=== PATIENT | male | born 1940 | race Caucasian/White ===

== ENCOUNTER → 2017-01-22 | Outpatient (CLI) | payer MEDICARE ==
[~2017-01-22] MED LIST: ACET65TA OR; CAPT12.5 OR; COLA100C2 PO; NEOSSOL TOP; OXYC10TA97 OR; PERC7.5T8 OR; ZETI10TA OR; metformin PO
[2017-01-22 09:12] LABS: MEAN CORPUSCULAR HEMOGLOBIN 30.2 pg (27.0-33.0); MEAN CORPUSCULAR HGB CONC 31.8 g/dl (32.0-36.5); MEAN CORPUSCULAR VOLUME 95.1 fl (80.0-96.0); RED CELL DISTRIBUTION WIDTH 13.5 % (11.5-14.5); WHITE BLOOD COUNT 6.4 K/mm3 (4.0-10.0)
--- NOTE | 2017-01-22 09:29 | REP ---
CHEST, PA AND LATERAL: 01/22/2017. Comparison: 06/04/2016, 06/05/2013. Clinical history: Hypertension. Findings: Lungs are hyperinflated. There is underlying fibrosis and COPD. Scarring slightly heavier in the right than left base. Some minor lateral pleural thickening and post-traumatic changes right lateral ribs. No dense consolidation, parenchymal mass or acute infiltrate. Heart not enlarged. Epicardial fat pad adjacent left heart border. There is some pulmonary artery hypertension, likely on the basis of COPD. Bullous emphysematous changes in the upper lung zones. Calcified aorta without aneurysm. Airway intact. Bony thorax shows no acute compression deformity. Impression: 1. Hyperinflation with COPD, pulmonary artery hypertension, emphysematous change and fibrosis. Stable chest with no acute finding. Signed by Samuel Rodríguez MD 01/22/2017 08:19 P
[2017-01-22 09:53] LABS: ALBUMIN 3.7 GM/DL (3.2-5.2); ALBUMIN/GLOBULIN RATIO 1.32 (1.00-1.93); ALKALINE PHOSPHATASE 78 U/L (45-117); ALT/SGPT 22 U/L (12-78); ANION GAP 6 MEQ/L (8-16); AST/SGOT 13 U/L (15-37); BILIRUBIN,TOTAL 0.4 MG/DL (0.2-1.0); BLOOD UREA NITROGEN 15 MG/DL (7-18); CALCIUM LEVEL 9.3 MG/DL (8.8-10.2); CARBON DIOXIDE LEVEL 29 MEQ/L (21-32); CHLORIDE LEVEL 106 MEQ/L (98-107); CHOLESTEROL LEVEL 213 MG/DL (<200); CREATININE FOR GFR 0.95 MG/DL (0.70-1.30); GLOMERULAR FILTRATION RATE > 60.0 (>42); GLUCOSE, FASTING 116 MG/DL (83-110); POTASSIUM SERUM 4.6 MEQ/L (3.5-5.1); SODIUM LEVEL 141 MEQ/L (136-145); TOTAL PROTEIN 6.5 GM/DL (6.4-8.2); TRIGLYCERIDES LEVEL 80 MG/DL (<150)
--- NOTE | 2017-01-23 20:22 | ECGEPIP ---
Stationary ECG Study [facility] Test Date: 2017-01-22 Pat Name: GELA TORRES Department: Room: - Gender: M Director Imaging: GUEVARA : 1940 Requested By: Venessa Villatoro Order Number: [id number] Reading MD: Michael Banerjee Measurements Intervals [place] Rate: 78 P: 71 TN: 153 QRS: 75 QRSD: 109 T: 71 QT: 350 QTc: 400 Interpretive Statements SINUS RHYTHM DELAYED R WAVE PROGRESSION SIMILAR 06/04/16 Electronically Signed On 01-23-2017 20:21:52 EDT by Michael Banerjee
== END ==
LOC: M LAB 08:26
PROVIDERS: ATTEND Family Medicine
DX: J44.9 Chronic obstructive pulmonary disease, unspecified (principal); I27.0 Primary pulmonary hypertension; N40.0 Benign prostatic hyperplasia without lower urinary tract symptoms

== ENCOUNTER → 2017-02-02 | Day surgery (SDC) | payer MEDICARE ==
[~2017-02-02] VITALS: Ht 177.8 cm; Wt 83.9 kg
[~2017-02-02] MED LIST changes: +ACETAMINOPHEN 325 MG TAB PO PRN; +ACETYLCHOLINE OPHTH SOLN 1% 2ML As Ordered ONE; +AcetaZOLAMIDE 500 MG ER CAP PO ONE; +BALANCED SALT IRRIGATION SOLUTION 500ML BAG (FOR OR EYE MACHINE) As Ordered ONE; +CAPT62TA PO; +CEFUROXIME 1MG/0.1ML INTRACAMERAL INJ As Ordered ONE; +CYCLOPENTOLATE 2% OPHTH SOLN OS ONE; +D5W/0.2% SODIUM CHLORIDE 250 ML IV SCH; +HEALON DUET (HEALON 10MG/ML 0.55ML & HEALON ENDOCOAT 30MG/ML 0.85ML) As Ordered ONE; +KETOROLAC 0.5% OPHTH SOLN OS ONE; +LIDOCAINE 1% SDV 5 ML VIAL As Ordered ONE; +LIDOCAINE 4% INJ 5 ML AMP OU ONE; +MIDAZOLAM INJ 2 MG/2 ML VIAL (J2250) As Ordered ONE; +OFLOXACIN 0.3 % (OCUFLOX) OPTH SOL 5ML OS ONE; +PHENYLEPHRINE 2.5% OPHTH SOL 2ML OS ONE; +POVIDONE-IODINE 5% OPHTH PREP SOL 30ML As Ordered ONE; +PROPARACAINE 0.5% OPHTH SOL 15ML OS PRN; +TRIMETHOBENZAMIDE 300 MG CAP PO PRN; +TROPICAMIDE 1% OPHTH SOLN 2 ML OS ONE; +TYLE325T5 PO; +ZETI10TA2 PO; +fentaNYL 100 MCG/2 ML INJECTION (J3010) As Ordered ONE
[2017-02-02 14:00] VITALS: BP 175/79
--- NOTE | 2017-02-02 14:08 | RO ---
DATE OF PROCEDURE: 02/02/2017 PREPROCEDURE DIAGNOSIS: Age related nuclear cataract left eye. POSTPROCEDURE DIAGNOSIS: Age related nuclear cataract left eye. PROCEDURE: Femtosecond cataract extraction with posterior chamber intraocular lens. The lens used was an AU00T0, 18.0 diopter. SURGEON: Kristina Shen MD NIGHT WORKER: ANESTHESIA: Topical sedation. DESCRIPTION OF PROCEDURE: The patient was brought to the operating room and put under the femtosecond laser. A lid speculum was placed between the lids, and the laser was lowered on. Docking was achieved with good suction. The laser procedure was performed with no difficulty. The laser was then removed from the eye, and the lid speculum was removed. The laser was moved over to the operating microscope and prepped and draped in the usual fashion. A lid speculum was placed between the lids. The eye was fixated. The side port incision was opened up with a spatula. 1% non-preservative lidocaine was instilled; then, viscoelastic was instilled. The main incision was then opened with the spatula. The capsulorrhexis was removed from the eye with the Utrata forceps. The lens was then hydrodissected, and a phacoemulsification unit was used to make a groove in the nucleus and one meridian. The nucleus was cracked into four quadrants, and then each quadrant was removed with the phacoemulsification unit. Any remaining cortex was removed with the irrigation and aspiration (I and A) unit. The capsular bag was refilled with viscoelastic. A posterior chamber intraocular lens was placed in the capsular bag. The remaining viscoelastic was removed. The wound was hydrated. Miochol and cefuroxime were instilled. The wound was watertight. The patient tolerated the procedure well and went to the recovery room in stable condition.
== END | disposition home or self-care (01) ==
LOC: M SDC 11:24
PROVIDERS: ATTEND Ophthalmology
DX: H25.12 Age-related nuclear cataract, left eye (principal); I10 Essential (primary) hypertension; E78.00 Pure hypercholesterolemia, unspecified; E11.9 Type 2 diabetes mellitus without complications; K21.9 Gastro-esophageal reflux disease without esophagitis; F17.210 Nicotine dependence, cigarettes, uncomplicated; Z79.899 Other long term (current) drug therapy; Z79.84 Long term (current) use of oral hypoglycemic drugs
CPT/HCPCS: 66984; J2250; J3010; V2632

== ENCOUNTER → 2018-11-04 | Outpatient (CLI) | payer MEDICARE ==
[~2018-11-04] MED LIST changes: -ACETAMINOPHEN 325 MG TAB PO PRN; -ACETYLCHOLINE OPHTH SOLN 1% 2ML As Ordered ONE; -AcetaZOLAMIDE 500 MG ER CAP PO ONE; -BALANCED SALT IRRIGATION SOLUTION 500ML BAG (FOR OR EYE MACHINE) As Ordered ONE; -CEFUROXIME 1MG/0.1ML INTRACAMERAL INJ As Ordered ONE; -CYCLOPENTOLATE 2% OPHTH SOLN OS ONE; -D5W/0.2% SODIUM CHLORIDE 250 ML IV SCH; -HEALON DUET (HEALON 10MG/ML 0.55ML & HEALON ENDOCOAT 30MG/ML 0.85ML) As Ordered ONE; -KETOROLAC 0.5% OPHTH SOLN OS ONE; -LIDOCAINE 1% SDV 5 ML VIAL As Ordered ONE; -LIDOCAINE 4% INJ 5 ML AMP OU ONE; -MIDAZOLAM INJ 2 MG/2 ML VIAL (J2250) As Ordered ONE; -OFLOXACIN 0.3 % (OCUFLOX) OPTH SOL 5ML OS ONE; -PHENYLEPHRINE 2.5% OPHTH SOL 2ML OS ONE; -POVIDONE-IODINE 5% OPHTH PREP SOL 30ML As Ordered ONE; -PROPARACAINE 0.5% OPHTH SOL 15ML OS PRN; -TRIMETHOBENZAMIDE 300 MG CAP PO PRN; -TROPICAMIDE 1% OPHTH SOLN 2 ML OS ONE; -ZETI10TA2 PO; +ZETI10TA30 PO; -fentaNYL 100 MCG/2 ML INJECTION (J3010) As Ordered ONE
--- NOTE | 2018-11-04 13:54 | REP ---
LEFT SHOULDER, COMPLETE: 11/04/2018. Comparison: PA chest 01/22/2017. Clinical history: Left shoulder pain. Findings: AC joint shows some degenerative changes and larger spurs superiorly than inferiorly. No widening of the joint space or elevation of the clavicle. Minimal glenohumeral joint degenerative changes are noted with range of motion with internal external rotation views. Peripheral acromial spur noted. I see no subluxation or dislocation of the humeral head from the glenoid. No abnormal soft-tissue calcification. Visualized ribs intact. Impression: 1. AC and glenohumeral joint arthritic change without fracture, avulsion, subluxation, abnormal soft-tissue calcification or other acute finding. No destructive bone lesion. Electronically Signed by Samuel Rodríguez MD 11/04/2018 02:08 P
== END ==
LOC: M WUC 11:53
PROVIDERS: ATTEND Physician Assistant
DX: M79.622 Pain in left upper arm (principal)

== ENCOUNTER → 2019-07-28 | Outpatient (CLI) | payer MEDICARE ==
[~2019-07-28] MED LIST changes: +ZETI10TA16 PO; -ZETI10TA30 PO
--- NOTE | 2019-07-29 10:47 | REP ---
REASON FOR EXAM: History of COPD. COMPARISON: Multiple, the latest 01/22/2017. The cardiomediastinal silhouette and lung justice are unchanged. There is scattered parenchymal fibrosis status quo. There is chronic CP angle blunting status quo. The heart is not enlarged. There are no acute abnormal parenchymal opacities. There are chronic changes seen involving the imaged osseous structures status quo. IMPRESSION: Stable appearing chronic changes without plain radiographic evidence of acute cardiopulmonary disease. Electronically Signed by Jose Stanton DO 07/29/2019 10:57 A
== END ==
LOC: M WUC 12:07
PROVIDERS: ATTEND Family Medicine
DX: J44.9 Chronic obstructive pulmonary disease, unspecified (principal)

== ENCOUNTER → 2021-04-14 | Outpatient (CLI) | payer MEDICARE ==
[2021-04-14 07:30] LABS: HEMATOCRIT 46.5 % (42.0-52.0); HEMOGLOBIN 15.3 g/dl (13.5-17.5); MEAN CORPUSCULAR HEMOGLOBIN 30.9 pg (27.0-33.0); MEAN CORPUSCULAR HGB CONC 32.9 g/dl (32.0-36.5); MEAN CORPUSCULAR VOLUME 93.9 fl (80.0-96.0); PLATELET COUNT, AUTOMATED 256 10^3/uL (150-450); RED BLOOD COUNT 4.95 10^6/uL (4.30-6.10)
[2021-04-14 08:11] LABS: ALT/SGPT 19 U/L (12-78); BILIRUBIN,TOTAL 0.8 MG/DL (0.2-1.0); BLOOD UREA NITROGEN 16 MG/DL (7-18); CALCIUM LEVEL 8.5 MG/DL (8.8-10.2); CARBON DIOXIDE LEVEL 30 MEQ/L (21-32); CHLORIDE LEVEL 105 MEQ/L (98-107); CREATININE FOR GFR 0.86 MG/DL (0.70-1.30); GLOMERULAR FILTRATION RATE > 60.0 (>42); GLUCOSE, FASTING 102 MG/DL (70-100); POTASSIUM SERUM 3.6 MEQ/L (3.5-5.1); SODIUM LEVEL 141 MEQ/L (136-145)
[2021-04-14 08:12] LABS: ALBUMIN 3.4 GM/DL (3.2-5.2); CHOLESTEROL LEVEL 192 MG/DL (<200); CHOLESTEROL RISK RATIO 3.764 (<5); HDL CHOLESTEROL 51 MG/DL (>40); LDL CHOLESTEROL 124 MG/DL (<100); NON-HDL-C 141 MG/DL; PROSTATIC SPECIFIC AG MONITOR 0.99 NG/ML (< 4.00); TOTAL PROTEIN 6.3 GM/DL (6.4-8.2); TRIGLYCERIDES LEVEL 84 MG/DL (<150)
--- NOTE | 2021-04-14 08:30 | REP ---
INDICATION: COPD,ANEMIA COMPARISON: 07/28/2019 TECHNIQUE: PA and lateral. FINDINGS: The mediastinum and cardiac silhouette are normal. The lung justice demonstrate stable chronic changes consistent with COPD. No acute consolidation, effusion, or pneumothorax. The skeletal structures are intact and normal. IMPRESSION: No acute cardiopulmonary process. <Electronically signed by Bernard Wallace > 04/14/21 0894
[2021-04-14 09:32] LABS: HEMOGLOBIN A1c 5.2 %
--- NOTE | 2021-04-14 17:37 | ECGEPIP ---
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 Could not rule out prior septal infarction No significant change from 01/22/17 Electronically Signed on 04-14-2021 17:37:35 EDT by Donald Walsh
== END ==
LOC: M LAB 06:45
PROVIDERS: ATTEND Family Medicine
DX: J44.9 Chronic obstructive pulmonary disease, unspecified (principal); D64.9 Anemia, unspecified; E78.00 Pure hypercholesterolemia, unspecified; R97.20 Elevated prostate specific antigen [PSA]

== ENCOUNTER → 2021-04-29 | Outpatient (CLI) | payer MEDICARE ==
[~2021-04-29] MED LIST changes: +E-Z-GAS II EFFERVESCENT PACKET (SODIUM BICARB./CITRIC ACID/SIMETHICONE) As Ordered ONE; +E-Z-HD 98% w/w 340GM SUSP BTL As Ordered ONE; +E-Z-PAQUE 96% w/w SUSP 176GM BTL As Ordered ONE
--- NOTE | 2021-04-29 15:16 | REP ---
INDICATION: EPIGASTRIC PAIN, WT LOSS. COMPARISON: Upper GI dated 12/17/2008, CT abdomen and pelvis with contrast dated 09/16/2011 TECHNIQUE: This procedure was performed by Miranda Carrillo [facility], under the direct supervision of Dr. Frye. Images were reviewed with Dr. Frye prior to dictation. Liquid barium and gas producing crystals were given in the erect position, as well as liquid barium in the prone oblique position in order to perform a double contrast upper GI examination. FINDINGS: The university administrative assistant film shows no organomegaly or pathological masses. The intestinal gas pattern is unremarkable. The oral and pharyngeal stages of deglutition were unremarkable. Esophageal transport is prompt and efficient and there is no evidence of esophagitis, stricture, or mucosal ring. There is no evidence of a hiatal hernia. Gastroesophageal reflux was noted into the distal esophagus. The stomach agosto are normally outlined. There are numerous thickened gastric folds. This is a similar appearance to the previous study in [address] in 2010. An upper endoscopy may be considered for better visualization and correlation given the patient's symptoms. Due to this appearance and the patient's symptoms gastritis cannot be ruled out. The duodenal agosto are normally outlined. The mucosal folds are smooth and regular. There is no duodenitis, peptic ulcer disease or neoplasm. The visualized portion of the proximal small bowel appears normal in course and caliber. IMPRESSION: Numerous thickened gastric folds as described above, upper endoscopy may be considered for further evaluation. 0.3 minutes of fluoroscopy time was utilized for this procedure. Some fluoroscopic images are performed with last image hold technology. These images require no additional radiation. <Electronically signed by Miranda Carrillo > 04/29/21 144 <Electronically signed by Mendez Frye > 04/29/21 1514
== END ==
LOC: M RAD 08:28
PROVIDERS: ATTEND Family Medicine
DX: R63.4 Abnormal weight loss (principal); R10.13 Epigastric pain

== ENCOUNTER 2021-06-15 11:26 | Emergency (ER) | payer MEDICARE ==
[~2021-06-15] VITALS: Ht 177.8 cm; Wt 63.0 kg
[~2021-06-15 11:26] MED LIST changes: -E-Z-GAS II EFFERVESCENT PACKET (SODIUM BICARB./CITRIC ACID/SIMETHICONE) As Ordered ONE; -E-Z-HD 98% w/w 340GM SUSP BTL As Ordered ONE; -E-Z-PAQUE 96% w/w SUSP 176GM BTL As Ordered ONE
[2021-06-15] MEDS ORDERED: HYDR-4571 PO (11:45)
[2021-06-15] MEDS ORDERED: ONDANSETRON 4MG/2ML VIAL IV ONE (14:20)
[2021-06-15] MEDS ORDERED: MORPHINE 4 MG/ML 1ML VIAL/SYRINGE (J2270) IV ONE (14:20)
[2021-06-15 15:08] LABS: BASO % 0.1 % (0.0-1.0); HEMATOCRIT 46.6 % (42.0-52.0); HEMOGLOBIN 15.9 g/dl (13.5-17.5); LYMPH # 1.2 10^3/uL (1.5-5.0); LYMPH % 5.6 % (24.0-44.0); MEAN CORPUSCULAR HEMOGLOBIN 31.1 pg (27.0-33.0); MEAN CORPUSCULAR HGB CONC 34.1 g/dl (32.0-36.5); MONO # 1.2 10^3/uL (0.0-0.8); MONO % 5.7 % (2.0-8.0); NEUTROPHILS # 18.3 10^3/uL (1.5-8.5); NEUTROPHILS % 87.6 % (36.0-66.0); PLATELET COUNT, AUTOMATED 255 10^3/uL (150-450); RED BLOOD COUNT 5.12 10^6/uL (4.30-6.10); WHITE BLOOD COUNT 20.9 10^3/uL (4.0-10.0)
[2021-06-15 16:23] VITALS: BP 173/85
[2021-07-29] MEDS ORDERED: MAGN200T PO (15:03)
[2021-07-29] MEDS ORDERED: DEXI30CA2 PO (15:03)
[2021-07-29] MEDS ORDERED: SUCR1TA PO (15:03)
[2021-07-29] MEDS ORDERED: VITMTA PO (15:03)
== END 2021-06-15 16:26 | disposition home or self-care (01) ==
LOC: M ED 11:26
DX: K40.90 Unilateral inguinal hernia, without obstruction or gangrene, not specified as recurrent (principal); I10 Essential (primary) hypertension; E78.5 Hyperlipidemia, unspecified; J44.9 Chronic obstructive pulmonary disease, unspecified; F17.200 Nicotine dependence, unspecified, uncomplicated
CPT/HCPCS: 76857; 80047; 85025; 96374; 96375; 99284; J2270; J2405

== ENCOUNTER → 2021-06-20 | Outpatient (CLI) | payer MEDICARE ==
[~2021-06-20] MED LIST changes: +ERGO500029 PO; +FLUTISP NARES; +HYDR-4571 PO; +PANT40TA29 PO; +PRED10TA2 PO; +SYMB16INH INH
[2021-06-20 09:39] LABS: ALT/SGPT 165 U/L (12-78); BLOOD UREA NITROGEN 14 MG/DL (7-18); CALCIUM LEVEL 7.3 MG/DL (8.8-10.2); CARBON DIOXIDE LEVEL 30 MEQ/L (21-32); CHLORIDE LEVEL 104 MEQ/L (98-107); CREATININE FOR GFR 0.81 MG/DL (0.70-1.30); GLOMERULAR FILTRATION RATE > 60.0 (>42); GLUCOSE, FASTING 102 MG/DL (70-100); POTASSIUM SERUM 3.3 MEQ/L (3.5-5.1); SODIUM LEVEL 140 MEQ/L (136-145)
== END ==
LOC: M LAB 08:52
PROVIDERS: ATTEND Internal Medicine Gastroenterology
DX: R10.9 Unspecified abdominal pain (principal); R63.4 Abnormal weight loss

== ENCOUNTER 2021-06-24 14:11 | Inpatient (IN) | payer MEDICARE ==
[~2021-06-24] VITALS: Ht 177.8 cm; Wt 60.5 kg
[~2021-06-24 14:11] MED LIST changes: -ERGO500029 PO; -FLUTISP NARES; -PANT40TA29 PO; -PRED10TA2 PO; -SYMB16INH INH
[2021-06-24] MEDS ORDERED: PRED10TA2 PO (14:29)
[2021-06-24] MEDS ORDERED: PANT40TA29 PO (14:29)
[2021-06-24] MEDS ORDERED: methylPREDNISolone 125MG 2ML VIAL IV ONE (15:25)
[2021-06-24 15:51] LABS: BASO % 0.1 % (0.0-1.0); EOS % 0.1 % (0.0-3.0); HEMATOCRIT 43.2 % (42.0-52.0); HEMOGLOBIN 15.1 g/dl (13.5-17.5); LYMPH # 0.9 10^3/uL (1.5-5.0); LYMPH % 5.6 % (24.0-44.0); MEAN CORPUSCULAR VOLUME 88.7 fl (80.0-96.0); MONO # 0.6 10^3/uL (0.0-0.8); MONO % 3.9 % (2.0-8.0); NEUTROPHILS # 13.8 10^3/uL (1.5-8.5); NEUTROPHILS % 89.1 % (36.0-66.0); PLATELET COUNT, AUTOMATED 212 10^3/uL (150-450); RED BLOOD COUNT 4.87 10^6/uL (4.30-6.10); WHITE BLOOD COUNT 15.5 10^3/uL (4.0-10.0)
[2021-06-24 16:24] LABS: ALBUMIN 2.7 GM/DL (3.2-5.2); ALT/SGPT 85 U/L (12-78); BILIRUBIN,DIRECT 0.6 MG/DL (0.0-0.2); BILIRUBIN,TOTAL 1.4 MG/DL (0.2-1.0); BLOOD UREA NITROGEN 14 MG/DL (7-18); CALCIUM LEVEL 6.9 MG/DL (8.8-10.2); CARBON DIOXIDE LEVEL 30 MEQ/L (21-32); CHLORIDE LEVEL 100 MEQ/L (98-107); CPK CREATINE PHOSPHOKINASE 76 U/L (39-308); CREATININE FOR GFR 0.73 MG/DL (0.70-1.30); GLOMERULAR FILTRATION RATE > 60.0 (>42); GLUCOSE, FASTING 120 MG/DL (70-100); MB/CK RELATIVE INDEX 3.95 (< OR =4); NT-PRO BNP 563 PG/ML (<450); POTASSIUM SERUM 3.1 MEQ/L (3.5-5.1); SODIUM LEVEL 138 MEQ/L (136-145); THYROID STIMULATING HORMONE 0.954 uIU/ML (0.358-3.740); THYROXINE (T4) 10.1 UG/DL (4.5-12.0); TOTAL PROTEIN 5.4 GM/DL (6.4-8.2); TROPONIN I 0.02 NG/ML (< 0.10)
[2021-06-24 16:31] LABS: RSV AMPLIFICATION NEGATIVE (NEGATIVE)
--- NOTE | 2021-06-24 17:00 | REP ---
INDICATION: DYSPNEA/COUGH. COMPARISON: Comparison chest x-ray April 14, 2021. TECHNIQUE: Portable upright AP chest radiograph. FINDINGS: The lungs are hyperinflated consistent with COPD. Mild bibasilar pleuroparenchymal fibrotic changes are seen. There are multiple old healed rib fractures bilaterally. The heart is not enlarged. EKG electrodes are seen. There is diffuse osteopenia. IMPRESSION: Hyperinflation. Bibasilar pleuroparenchymal fibrosis. Bilateral old healed rib fractures. <Electronically signed by Mendez Frye > 06/24/21 [id number]
[2021-06-24 17:10] LABS: PTH INTACT 75.8 PG/ML (18.5-88.0)
[2021-06-24] MEDS ORDERED: ISOVUE-370 76% 100ML VIAL As Ordered ONE (17:21)
--- NOTE | 2021-06-24 18:08 | REPVR ---
PROCEDURE INFORMATION: Exam: CTA Chest With Contrast Exam date and time: 06/24/2021 5:42 PM Age: 80 years old Clinical indication: Other: Abrupt onset of SOB; R/O pe TECHNIQUE: Imaging protocol: Computed tomographic angiography of the chest with contrast. 3D rendering (Not supervised by radiologist): MIP reconstructed images were created by the technologist. Radiation optimization: All CT scans at this facility use at least one of these dose optimization techniques: automated exposure control; mA and/or kV adjustment per patient size (includes targeted exams where dose is matched to clinical indication); or iterative reconstruction. Contrast material: ISOVUE 370; Contrast volume: 75 ml; Contrast route: INTRAVENOUS (IV); COMPARISON: CR PORTABLE CHEST X-RAY 06/24/2021 4:33 PM FINDINGS: Pulmonary arteries: No pulmonary artery embolism identified. Aorta: Moderate aortic arch, branch, and descending thoracic aortic atherosclerotic calcification without ectasia. Thyroid: The partially imaged bilateral thyroid lobes are unremarkable. Lungs: Right upper lobe pulmonary parenchymal scarring with dystrophic calcification, with focal somewhat triangular 2.9 cm cavity containing calcifications. Short segment right lower lobe posterior basilar segment mucous plugging. Left lower lobe endobronchial mucous plugging including 2.6 cm proximal left lower lobe bronchial in mucous plug and peripheral segmental and subsegmental occlusions. Mild bilateral lower lobe bronchial wall thickening. Pleural spaces: No pneumothorax. No pleural effusion. Heart: Normal. No pericardial effusion. Lymph nodes: No enlarged lymph nodes. Gallbladder and bile ducts: A few dependent tiny gallstones are noted posteriorly in the nondistended gallbladder. No gallbladder wall thickening or pericholecystic fluid identified. Pancreas: Moderate pancreatic atrophy. Adrenal glands: Left adrenal gland 16.6 mm low attenuation nodule (-6.3 Hounsfield units). 13.7 mm right adrenal nodule (16.2 Hounsfield units). Stomach and bowel: Right anterior subdiaphragmatic colonic and small bowel interposition is present, a normal variant. Bones/joints: Thoracic spine vertebral body marginal osteophytes are noted at multiple levels. Multiple healed right rib fractures. Healed posterolateral left 9th rib fracture. Soft tissues: Unremarkable. IMPRESSION: 1. No pulmonary artery embolism identified. 2. Right upper lobe thin walled cavity or bronchiectasis with broncholiths. 3. Left lower lobe extensive endobronchial mucous plugging. 4. Short segment right lower lobe posterior basilar segment mucous plugging. 5. Mild bilateral lower lobe bronchial wall thickening. 6. Left adrenal lipomatous adenoma. 7. Right adrenal nodule. Recommend further evaluation with CT washout or MRI. 8. Cholelithiasis. Electronically signed by: David Nguyen On 06/24/2021 18:08:17 PM
[2021-06-24] MEDS ORDERED: SYMB16INH INH (19:16)
[2021-06-24] MEDS ORDERED: FLUTISP NARES (19:16)
[2021-06-24] MEDS ORDERED: HOME MED LIST COMPLETE! XX SCH (19:20)
[2021-06-24] MEDS ORDERED: ACETAMINOPHEN TAB 650MG DOSE (2X325MG) PO PRN (19:30)
--- NOTE | 2021-06-24 19:53 | HPEPDOC ---
General Date of Admission 06/24/21 Date of Service: Jun 24, 2021 Chief Complaint Diff Breathing. Source: Patient History of Present Illness Alon Deleon is a 80-year-old male with significant history of hypertension, hyperlipidemia, GERD, COPD, and NIDDM who presents with dizziness. Patient reports that he has been at baseline until suddenly today he was sitting down and reported dizziness. He also reports a notable shortness of breath episode which prompted him to the ER. Patient endorses daily smoking and EtOH use. He reports compliance with his medications and describes chronic sinusitis. 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 Review of systems positive for loss of appetite in the past 2 months. Patient describes "no interest in eating". Patient reports that he went to his PCP regarding his appetite loss but did not endorse a set plan or any appetite stimulants. He also did report he was treated outpatient 2 to 3 weeks ago with steroids for bronchitis. Of note, patient chest x-ray showed hyperinflation. CT chest completed negative PE but did show several areas of mucous plugging as well as parenchymal thickening. Pt denies dunbar, sore throat, productive cough, palpitations, chest pain, n/v/d, abdominal pain, weakness, sensory changes or syncope. Patient does report some improvement after breathing treatment and steroids in ED. Home Medications Scheduled Budesonide/Formoterol (Symbicort 160-4.5 Mcg Inhaler) 6 Gm Hfa.aer.ad, 2 PUFFS INH BID, (Reported) Captopril (Captopril) 12.5 Mg Tab, 12.5 MG PO BID, (Reported) Ergocalciferol (Vitamin D2) (Vitamin D2) 50,000 Units Cap, 50,000 UNITS PO 1XWK for vitamin d deficiency Fluticasone Propionate (Fluticasone Propionate) 16 Gm [place].susp, 2 SPRAYS NARES DAILY, (Reported) Pantoprazole Sodium (Pantoprazole Sodium) 40 Mg Tablet.dr, 40 MG PO DAILY, (Reported) Prednisone (Prednisone) 10 Mg Tablet, 10 MG PO DAILY, (Reported) Scheduled PRN Hydrocodone/Acetaminophen (Hydrocodone-Acetamin 5-325 mg) 1 Each Tablet, 1 TAB PO BID PRN for PAIN LEVEL 1-6, (Reported) Allergies Coded Allergies: No Known Allergies (Verified , 02/02/17) Past Medical History Medical History Hypertension, hyperlipidemia, GERD, COPD, hernia and NIDDM Surgical History Denies Family History Significant Family History: No pertinent family hx Social History * Smoker: current smoker (1 to 2 packs weekly), cigarettes Alcohol: heavy (Daily 2-3 beers or vodka drinks) Drugs: denies Recent Travel/Sick Contacts: Denies: Recent travel, Recent sick contacts Psychosocial History: No pertinent psych hx A-FIB/CHADSVASC A-FIB History Current/History of A-Fib/PAF?: No Current PO Anticoag Therapy: No Review of Systems Constitutional: Denies: Chills, Fever, Night Sweats Eyes: Denies: Pain, Vision change ENT: Denies: Head Aches, Ear Pain, Dysphagia Skin: Denies: Rash, Lesions, Breakdown Pulmonary: Reports: Dyspnea; Denies: Cough Cardiovascular: Reports: Lt Headedness; Denies: Chest Pain, Palpitations, Orthopnea, Paroxysmal Noc. Dyspnea Gastrointestinal: Denies: Nausea, Vomiting, Abdominal Pain, Diarrhea Genitourinary: Denies: Dysuria, Frequency, Incontinence, Retention Hematologic: Denies: Bruising, Bleeding Excessively Musculoskeletal: Denies: Neck Pain, Back Pain, Joint Pain, Muscle Pain, Spasms Neurological: Denies: Weakness, Numbness, Change in speech, Confusion Psych: Reports: Mood Normal; Denies: Depression, Memory Issues Physical Examination General Exam: Positive: Alert, No Acute Distress Eye Exam: Positive: PERRLA, Conjunctiva & lids normal, EOMI; Negative: Sclera icteric ENT Exam: Positive: Atraumatic, Mucous membr. moist/pink, Pharynx Normal Neck Exam: Positive: Supple; Negative: JVD, thyromegaly Chest Exam: Positive: Rhonchi Heart Exam: Positive: Regular Rhythm, Normal S1, Normal S2, Other (Extrasystoles); Negative: Murmurs, Rubs Telemetry: Positive: No significant arrhythmia Abdomen Exam: Positive: Normal bowel sounds, Soft; Negative: Tenderness, Hepatospenomegaly Extremity Exam: Positive: Normal pulses; Negative: Clubbing, Cyanosis, Edema Skin Exam: Positive: Other skin issue (Skin tenting); Negative: Breakdown, Lesion Neuro Exam: Positive: Normal Gait, Normal Speech, Cranial Nerves 3-12 NL, Reflexes 2+ Psych Exam: Positive: Mental status NL, Mood NL, Oriented x 3 Vital Signs Vital Signs Date Time Temp Pulse Resp B/P (MAP) Pulse Ox O2 Delivery O2 Flow Rate FiO2 06/24/21 18:45 16 135/84 (101) 06/24/21 18:41 82 06/24/21 17:26 97 06/24/21 14:31 97.4 Room Air Laboratory Data Labs 24H Laboratory Tests 2 06/24/21 15:36: Immature Granulocyte % (Auto) 1.2, Neutrophils (%) (Auto) 89.1H, Lymphocytes (%) (Auto) 5.6L, Monocytes (%) (Auto) 3.9, Eosinophils (%) (Auto) 0.1, Basophils (%) (Auto) 0.1, Neutrophils # (Auto) 13.8H, Lymphocytes # (Auto) 0.9L, Monocytes # (Auto) 0.6, Eosinophils # (Auto) 0.0, Basophils # (Auto) 0.0, Nucleated Red Blood Cells % (auto) 0.0, Anion Gap 8, Glomerular Filtration Rate > 60.0, Calcium Level 6.9L, Total Bilirubin 1.4H, Direct Bilirubin 0.6H, Aspartate Amino Transf (AST/SGOT) 24, Alanine Aminotransferase (ALT/SGPT) 85H, Alkaline Phosphatase 65, Total Creatine Kinase 76, Creatine Kinase MB 3.0, Creatine Kinase MB Relative Index 3.95, Troponin I 0.02, JV-Mta-O-Type Natriuretic Peptide 563H, Total Protein 5.4L, Albumin 2.7L, Albumin/Globulin Ratio 1.0, Thyroid Stimulating Hormone (TSH) 0.954, Thyroxine (T4) 10.1, Parathyroid Hormone (Intact) 75.8, Coronavirus (COVID-19)(PCR) NEGATIVE, Influenza Type A (RT-PCR) NEGATIVE, Influenza Type B (RT-PCR) NEGATIVE, Respiratory Syncytial Virus (PCR) NEGATIVE 06/24/21 18:23: Whole Blood Ionized Calcium 3.4*L CBC/BMP Laboratory Tests 06/24/21 15:36 Assessment/Plan 1. COPD exacerbation: Monitor patient respiratory status-telemetry and continuous pulse ox Plan for scheduled and as needed breathing treatments Will begin empiric coverage with Levaquin A.m. lab 2. Dizziness: In setting of above, poor p.o. intake and electrolyte abnormalities. -Will place patient on telemetry for cardiac monitoring and continuous pulse ox. -Patient with notable extrasystoles. EKG pending -consider arrhythmia exacerbated by electrolyte issues. -Replete electrolytes as noted below. -Treat COPD exacerbation as noted above. -Consider differentials. -Will check orthostatics -We will hydrate patient gently. 3. Leukocytosis: In setting of prednisone use outpatient and COPD exacerbation. -Monitor for signs symptoms of infection -Will place patient on empiric coverage -Monitor patient response and consider de-escalation escalation accordingly. 4. Hypokalemia and hypocalcemia: -Replete per protocol and recheck labs. -Consider underlying causes-patient did endorse EtOH use daily. PTH within normal limits. Phosphorus, magnesium and vitamin D pending. 5. Hypertension: Monitor blood pressure and continue home medications. 6. Xvh-mwnuxfi-ahunvucgo diabetes: Patient denies history of diabetes. Given treatment above with steroids will opt for blood sugar monitoring and sliding scale insulin. Pending patient response for increase or de-escalation. Will check A1c. 7. EtOH/tobacco use: Encourage moderation and cessation. Likely EtOH consumption could be relative to patient electrolyte disturbances given his additional poor p.o. intake. Will place patient on multivitamins and withdrawal monitoring. Nicotine patch if needed. 8. GERD: Protonix DVT: Heparin, SCDs CODE STATUS: Full Dispo: Home once electrolytes improved and patient no longer dyspneic. Plan / VTE VTE Prophylaxis Ordered?: Yes Attending Note Attending Note Ms. Law is a 80 yr old F admitted for management of #acute COPD #hypokalemia # hypomagnesemia # hypocalcemia that is likely due to Vitamin D deficiency #she also has SIRS. plan: check lactic acid and blood cx, treat her acute COPD, replete K & Mag and start her on Ergocalciferol. FERNANDA LAW NP Jun 24, 2021 19:44 MYA AUGUSTINE MD Jun 24, 2021 23:22
[2021-06-24] MEDS ORDERED: GLUCOSE 4GM CHEW TABLET PO PRN (19:55)
[2021-06-24] MEDS ORDERED: DEXTROSE 50% 50 ML SYRINGE IV PRN (19:55)
[2021-06-24] MEDS ORDERED: GLUCAGON INJ 1MG VIAL SC PRN (19:55)
[2021-06-24 20:33] LABS: MAGNESIUM LEVEL 0.3 MG/DL (1.8-2.4); PHOSPHORUS LEVEL 2.4 MG/DL (2.5-4.9); TOTAL 25(OH) VITAMIN D 12.6 NG/ML (30.0-100.0)
[2021-06-24] MEDS ORDERED: MAG SULF 1GM/100ML (MAG RUN) 1 GM in IV 1 EA IV ONE (20:50)
[2021-06-24] MEDS ORDERED: POTASSIUM CHLORIDE 10 MEQ SR TABLET PO ONE ×2 (20:50→21:50)
[2021-06-24] MEDS ORDERED: VITAMIN D 50,000 UNITS CAPSULE (ERGOCALCIFEROL 1.25MG) PO SCH (20:50)
[2021-06-24] MEDS ORDERED: HumaLOG INSULIN (NovoLOG) PER UNIT SC SCH (21:00)
[2021-06-24] MEDS ORDERED: LORazepam 2 MG TAB PO PRN (21:05)
[2021-06-24] MEDS: guaiFENesin ER 600 MG TAB PO SCH (21:10)
[2021-06-24] MEDS: IPRATROPIUM 0.5MG/ALBUTEROL 2.5MG INH SOL UD 3ML (DUONEB) NEB SCH (21:12)
[2021-06-24] MEDS: SYMBICORT 160/4.5MCG INHALER 6GM INH SCH (21:22)
[2021-06-24] MEDS ORDERED: KCL 10MEQ/100ML SWI (KRUN) 10 MEQ in IV 1 EA IV ONE (21:50)
[2021-06-24 22:00] VITALS: BP 143/76
[2021-06-24 22:15] VITALS: BP 143/76
[2021-06-24] MEDS: CAPTOpril 12.5 MG TAB PO SCH (22:29)
[2021-06-24] MEDS: NS 1,000 ML IV SCH (22:29)
[2021-06-24] MEDS: NORCO, ANEXSIA 5/325MG TABLET (HYDROcodone/ACETAMINOPHEN) PO PRN (22:34)
[2021-06-24] MEDS ORDERED: K-PHOS NEUTRAL 250MG TABLET (SOD.PHOSPHATE/POT.PHOSPHATE) PO ONE (23:00)
[2021-06-25] VITALS (8 sets, daily range): BP systolic 138–170; BP diastolic 54–83
[2021-06-25] MEDS: methylPREDNISolone 125MG 2ML VIAL IV SCH ×4 (00:07→23:48)
[2021-06-25] MEDS: LevoFLOXacin IV 750 MG in IV 1 EA IV SCH ×2 (00:08→21:35)
[2021-06-25] MEDS ORDERED: CALCIUM GLUCONATE 1,000 MG in D5W MINI-BAG PLUS 100 ML IV ONE ×3 (00:30→08:50)
[2021-06-25] MEDS: IPRATROPIUM 0.5MG/ALBUTEROL 2.5MG INH SOL UD 3ML (DUONEB) NEB SCH ×4 (01:34→19:30)
--- NOTE | 2021-06-25 06:07 | ECGEPIP ---
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
[2021-06-25] MEDS: HEPARIN SOD (PORCINE) 5000UNITS/ML 1ML VIAL/SYRINGE SC SCH ×3 (06:12→21:36)
[2021-06-25] MEDS ORDERED: HumaLOG INSULIN (NovoLOG) PER UNIT SC SCH (07:30)
[2021-06-25] MEDS: SYMBICORT 160/4.5MCG INHALER 6GM INH SCH ×2 (07:34→19:30)
[2021-06-25 08:14] LABS: BASO % 0.1 % (0.0-1.0); HEMATOCRIT 42.3 % (42.0-52.0); HEMOGLOBIN 14.8 g/dl (13.5-17.5); LYMPH # 0.9 10^3/uL (1.5-5.0); MEAN CORPUSCULAR VOLUME 88.7 fl (80.0-96.0); MONO # 0.5 10^3/uL (0.0-0.8); MONO % 3.2 % (2.0-8.0); NEUTROPHILS # 12.8 10^3/uL (1.5-8.5); NEUTROPHILS % 89.8 % (36.0-66.0); PLATELET COUNT, AUTOMATED 221 10^3/uL (150-450); RED BLOOD COUNT 4.77 10^6/uL (4.30-6.10); WHITE BLOOD COUNT 14.3 10^3/uL (4.0-10.0)
[2021-06-25 08:27] LABS: ALBUMIN 2.5 GM/DL (3.2-5.2); ALT/SGPT 82 U/L (12-78); BILIRUBIN,DIRECT 0.5 MG/DL (0.0-0.2); BLOOD UREA NITROGEN 12 MG/DL (7-18); CALCIUM LEVEL 7.1 MG/DL (8.8-10.2); CARBON DIOXIDE LEVEL 26 MEQ/L (21-32); CHLORIDE LEVEL 104 MEQ/L (98-107); CREATININE FOR GFR 0.59 MG/DL (0.70-1.30); GLOMERULAR FILTRATION RATE > 60.0 (>42); GLUCOSE, FASTING 104 MG/DL (70-100); POTASSIUM SERUM 3.6 MEQ/L (3.5-5.1); SODIUM LEVEL 139 MEQ/L (136-145); TOTAL PROTEIN 5.1 GM/DL (6.4-8.2)
--- NOTE | 2021-06-25 08:49 | IPNPDOC ---
Subjective Date Seen The patient was seen on 06/25/21. Subjective Chief Complaint/HPI This is a 80 y/o male with a pmh of htn, hld, gerd, copd and diet controlled dm who reports to the ED with a cc of dizziness and mild sob. Patient found to have impressive electrolyte abnormalities including hypokalemia, hypocalcemia, hypomagnesemia secondary to poor oral intake and etoh use. Patient admitted to hospitalist service for treatment of electrolyte imbalances and acute copd exacerbation. As of my exam of patient, he tells me that most of his symptoms are resolved. Patient tells me that his breathing is greatly improved and he had no dizziness this morning when he got up to go to the bathroom. Patient tells me that he is however still experiencing a cough that is nonproductive in nature. Patient endorses no new medical complaints. General: Denies: Chills, Night Sweats Constitutional: Denies: Chills, Fever Eyes: Denies: Pain, Vision change ENT: Denies: Head Aches Skin: Denies: Rash, Lesions Pulmonary: Reports: Cough; Denies: Dyspnea Cardiovascular: Denies: Chest Pain, Palpitations Gastrointestinal: Denies: Nausea, Vomiting, Abdominal Pain, Diarrhea Genitourinary: Denies: Dysuria Hematologic: Denies: Bruising Musculoskeletal: Denies: Back Pain, Joint Pain Neurological: Denies: Weakness, Numbness Psych: Reports: Mood Normal Objective Physical Examination General Exam: Positive: Alert, No Acute Distress Eye Exam: Positive: Conjunctiva & lids normal, EOMI; Negative: Sclera icteric ENT Exam: Positive: Atraumatic, Mucous membr. moist/pink, Pharynx Normal Chest Exam: Positive: Rhonchi (scattered) Heart Exam: Positive: Regular Rhythm; Negative: Murmurs, Rubs Telemetry: Positive: No significant arrhythmia Abdomen Exam: Positive: Normal bowel sounds, Soft; Negative: Tenderness Extremity Exam: Positive: Normal pulses; Negative: Clubbing, Cyanosis, Edema Skin Exam: Positive: Nl turgor and temperature, Rash Neuro Exam: Positive: Normal Speech Psych Exam: Positive: Mental status NL, Mood NL, Oriented x 3 Assessment /Plan Assessment This is a 80 y/o male with a pmh of htn, hld, gerd, copd and diet controlled dm who reports to the ED with a cc of dizziness and mild sob. Patient found to have impressive electrolyte abnormalities including hypokalemia, hypocalcemia, hypomagnesemia secondary to poor oral intake and etoh use. Patient admitted to hospitalist service for treatment of electrolyte imbalances and acute copd exacerbation. Plan/VTE VTE Prophylaxis Ordered?: Yes Plan 1. COPD exacerbation - greatly improved - continue duonebs prn - continue guaifenesin - continue at home inhalers - patient to receive levaquin today, will make day #2 of iv abx, white count is trending down - continuous pulse ox 2. Dizziness - most likely secondary to electrolyte imbalances - hypokalemia has resolved - hypomagnesemia has resolved - will give two more doses of iv calcium gluconate today - repeat bmp and mag tomorrow am 3. Hyperbilirubinemia - pt complains of dull abd pain - potentially secondary to alcoholism - will check a ct abd/pelvis 4. ETOH use - CIWA 5. DM - a1c is 5.6 - diet controlled - no need to fingersticks or sliding scale coverage at this time 6. GERD - continue protonix 6. HTN - continue captopril DVT prophylaxis - heparin ordered Disposition Likely dc home within the next 24 hours pending correction of electrolytes VS, I&O, 24H, [facility] Vital Signs/I&O Vital Signs Date Time Temp Pulse Resp B/P (MAP) Pulse Ox O2 Delivery O2 Flow Rate FiO2 06/25/21 06:00 97.9 78 17 143/77 (99) 95 Room Air I&O- Last 24 Hours up to 6 AM 06/25/21 06:00 Intake Total 50 ml Output Total 200 ml Balance -150 ml Laboratory Data 24H LABS Laboratory Tests 2 06/24/21 15:36: Immature Granulocyte % (Auto) 1.2, Neutrophils (%) (Auto) 89.1H, Lymphocytes (%) (Auto) 5.6L, Monocytes (%) (Auto) 3.9, Eosinophils (%) (Auto) 0.1, Basophils (%) (Auto) 0.1, Neutrophils # (Auto) 13.8H, Lymphocytes # (Auto) 0.9L, Monocytes # (Auto) 0.6, Eosinophils # (Auto) 0.0, Basophils # (Auto) 0.0, Nucleated Red Blood Cells % (auto) 0.0, Anion Gap 8, Glomerular Filtration Rate > 60.0, Calci um Level 6.9L, Phosphorus Level 2.4L, Magnesium Level 0.3*L, Total Bilirubin 1.4H, Direct Bilirubin 0.6H, Aspartate Amino Transf (AST/SGOT) 24, Alanine Aminotransferase (ALT/SGPT) 85H, Alkaline Phosphatase 65, Total Creatine Kinase 76, Creatine Kinase MB 3.0, Creatine Kinase MB Relative Index 3.95, Troponin I 0.02, BO-Aqc-P-Type Natriuretic Peptide 563H, Total Protein 5.4L, Albumin 2.7L, Albumin/Globulin Ratio 1.0, 25-Hydroxy Vitamin D Total 12.6L, Procalcitonin <0.05, Thyroid Stimulating Hormone (TSH) 0.954, Thyroxine (T4) 10.1, Parathyroid Hormone (Intact) 75.8, Coronavirus (COVID-19)(PCR) NEGATIVE, Influenza Type A (RT-PCR) NEGATIVE, Influenza Type B (RT-PCR) NEGATIVE, Respiratory Syncytial Virus (PCR) NEGATIVE 06/24/21 18:23: Whole Blood Ionized Calcium 3.4*L 06/24/21 20:22: Lactic Acid Level 2.9*H 06/24/21 23:57: Whole Blood Ionized Calcium 3.3*L, Lactic Acid Level 1.9 06/25/21 07:22: Bedside Glucose (Misc Panel) 114H 06/25/21 07:43: Immature Granulocyte % (Auto) 0.9, Neutrophils (%) (Auto) 89.8H, Lymphocytes (%) (Auto) 6.0L, Monocytes (%) (Auto) 3.2, Eosinophils (%) (Auto) 0.0, Basophils (%) (Auto) 0.1, Neutrophils # (Auto) 12.8H, Lymphocytes # (Auto) 0.9L, Monocytes # (Auto) 0.5, Eosinophils # (Auto) 0.0, Basophils # (Auto) 0.0, Nucleated Red Blood Cells % (auto) 0.0, Anion Gap 9, Glomerular Filtration Rate > 60.0, Calcium Level 7.1L, Whole Blood Ionized Calcium 3.6L, Total Bilirubin 1.0, Direct Bilirubin 0.5H, Aspartate Amino Transf (AST/SGOT) 30, Alanine Aminotransferase (ALT/SGPT) 82H, Alkaline Phosphatase 60, Total Protein 5.1L, Albumin 2.5L, Albumin/Globulin Ratio 1.0 CBC/BMP Laboratory Tests 06/24/21 15:36 06/24/21 23:57 06/25/21 07:43 Microbiology Microbiology 06/24/21 Blood Culture, Received Pending TERRA BATISTA Jun 25, 2021 08:49
[2021-06-25] MEDS: PANTOPRAZOLE 40MG TAB (PROTONIX) PO SCH (09:46)
[2021-06-25] MEDS: guaiFENesin ER 600 MG TAB PO SCH ×2 (09:46→21:34)
[2021-06-25] MEDS: FOLIC ACID 1 MG TAB PO SCH (09:46)
[2021-06-25] MEDS: NORCO, ANEXSIA 5/325MG TABLET (HYDROcodone/ACETAMINOPHEN) PO PRN (09:46)
[2021-06-25] MEDS: LACTOBACILLUS ACIDOPHILUS CAP (BACID) PO SCH (09:46)
[2021-06-25] MEDS: CAPTOpril 12.5 MG TAB PO SCH ×2 (09:47→21:34)
[2021-06-25] MEDS: THIAMINE 100 MG TAB PO SCH (09:47)
[2021-06-25] MEDS: MULTIVITAMINS/MINERALS THERAP 1 TAB PO SCH (09:48)
[2021-06-25] MEDS: FLUTICASONE PROP 0.05% NASAL SPRAY 16 GM (FLONASE) NARES SCH (09:48)
[2021-06-25] MEDS: CALCIUM GLUCONATE 1,000 MG in D5W MINI-BAG PLUS 100 ML IV SCH ×2 (09:49→11:24)
[2021-06-25 10:08] LABS: HEMOGLOBIN A1c 5.6 %
[2021-06-25] MEDS: NS 1,000 ML IV SCH (11:58)
[2021-06-25] MEDS ORDERED: ISOVUE-370 76% 100ML VIAL As Ordered ONE (16:08)
[2021-06-25] MEDS: GASTROGRAFIN SOLUTION 30ML PO SCH ×2 (16:30→17:00)
--- NOTE | 2021-06-25 18:31 | REPVR ---
PROCEDURE INFORMATION: Exam: CT Abdomen And Pelvis With Contrast Exam date and time: 06/25/2021 5:06 PM Age: 80 years old Clinical indication: Abnormal findings; Abnormal lab test; Other: Elevated bilirubin TECHNIQUE: Imaging protocol: Computed tomography of the abdomen and pelvis with contrast. Radiation optimization: All CT scans at this facility use at least one of these dose optimization techniques: automated exposure control; mA and/or kV adjustment per patient size (includes targeted exams where dose is matched to clinical indication); or iterative reconstruction. Contrast material: ISOVUE 370; Contrast volume: 100 ml; Contrast route: INTRAVENOUS (IV); COMPARISON: Pelvis, limited US 06/15/2021 2:36 PM FINDINGS: Lungs: Atelectasis at the left lung base. Liver: Normal. No mass. Gallbladder and bile ducts: Normal. No calcified stones. No ductal dilation. Pancreas: Normal. No ductal dilation. Spleen: Normal. No splenomegaly. Adrenal glands: Normal. No mass. Kidneys and ureters: Normal. No hydronephrosis. Stomach and bowel: Unremarkable. No obstruction. No mucosal thickening. Appendix: No evidence of appendicitis. Intraperitoneal space: Unremarkable. No free air. No significant fluid collection. Vasculature: Atherosclerotic calcification of the abdominal aorta and bilateral iliac vessels. Lymph nodes: Unremarkable. No enlarged lymph nodes. Urinary bladder: Unremarkable as visualized. Reproductive: Unremarkable as visualized. Bones/joints: Degenerative changes of the spine. Soft tissues: Unremarkable. IMPRESSION: No acute abdominal or pelvic abnormality. Electronically signed by: Marcio Montgomery On 06/25/2021 18:30:45 PM
[2021-06-25] MEDS ORDERED: ERGO500029 PO (19:42)
[2021-06-25 19:56] LABS: MAGNESIUM LEVEL 0.6 MG/DL (1.8-2.4)
[2021-06-25] MEDS: MAG SULF 1GM/100ML (MAG RUN) 1 GM in IV 1 EA IV SCH ×4 (21:35→23:52)
[2021-06-26] MEDS: IPRATROPIUM 0.5MG/ALBUTEROL 2.5MG INH SOL UD 3ML (DUONEB) NEB SCH ×2 (02:00→07:31)
[2021-06-26 04:33] LABS: BASO % 0.1 % (0.0-1.0); HEMATOCRIT 41.9 % (42.0-52.0); HEMOGLOBIN 14.4 g/dl (13.5-17.5); LYMPH # 0.7 10^3/uL (1.5-5.0); LYMPH % 3.9 % (24.0-44.0); MEAN CORPUSCULAR HEMOGLOBIN 31.1 pg (27.0-33.0); MEAN CORPUSCULAR HGB CONC 34.4 g/dl (32.0-36.5); MEAN CORPUSCULAR VOLUME 90.5 fl (80.0-96.0); MONO # 0.7 10^3/uL (0.0-0.8); MONO % 3.4 % (2.0-8.0); NEUTROPHILS # 17.4 10^3/uL (1.5-8.5); NEUTROPHILS % 91.6 % (36.0-66.0); PLATELET COUNT, AUTOMATED 207 10^3/uL (150-450); RED BLOOD COUNT 4.63 10^6/uL (4.30-6.10)
[2021-06-26 04:49] LABS: BLOOD UREA NITROGEN 13 MG/DL (7-18); CARBON DIOXIDE LEVEL 29 MEQ/L (21-32); CHLORIDE LEVEL 105 MEQ/L (98-107); CREATININE FOR GFR 0.66 MG/DL (0.70-1.30); GLOMERULAR FILTRATION RATE > 60.0 (>42); GLUCOSE, FASTING 123 MG/DL (70-100); MAGNESIUM LEVEL 1.9 MG/DL (1.8-2.4); POTASSIUM SERUM 3.7 MEQ/L (3.5-5.1); SODIUM LEVEL 139 MEQ/L (136-145)
[2021-06-26 06:00] VITALS: BP_SYST 130; BP_SYST 135; BP_SYST 152; BP_DIAS 69; BP_DIAS 70; BP_DIAS 71
[2021-06-26] MEDS: HEPARIN SOD (PORCINE) 5000UNITS/ML 1ML VIAL/SYRINGE SC SCH (06:14)
[2021-06-26] MEDS: NS 1,000 ML IV SCH (06:14)
[2021-06-26] MEDS: SYMBICORT 160/4.5MCG INHALER 6GM INH SCH (07:31)
[2021-06-26] MEDS: MULTIVITAMINS/MINERALS THERAP 1 TAB PO SCH (08:27)
[2021-06-26] MEDS: PANTOPRAZOLE 40MG TAB (PROTONIX) PO SCH (08:27)
[2021-06-26] MEDS: FOLIC ACID 1 MG TAB PO SCH (08:27)
[2021-06-26] MEDS: THIAMINE 100 MG TAB PO SCH (08:27)
[2021-06-26] MEDS: CAPTOpril 12.5 MG TAB PO SCH (08:27)
[2021-06-26] MEDS: LACTOBACILLUS ACIDOPHILUS CAP (BACID) PO SCH (08:27)
[2021-06-26] MEDS: guaiFENesin ER 600 MG TAB PO SCH (08:27)
[2021-06-26] MEDS: FLUTICASONE PROP 0.05% NASAL SPRAY 16 GM (FLONASE) NARES SCH (08:28)
[2021-06-26] MEDS: methylPREDNISolone 125MG 2ML VIAL IV SCH (08:28)
[2021-06-26] MEDS ORDERED: DOXY100C3 PO (10:03)
[2021-06-26] MEDS ORDERED: PRED20TA PO (10:03)
[2021-06-26] MEDS ORDERED: MAGN200T10 PO (10:05)
--- NOTE | 2021-06-26 10:38 | DSES ---
DISCHARGE SUMMARY DATE OF ADMISSION: 06/24/2021 DATE OF DISCHARGE: 06/26/2021 PRINCIPAL DIAGNOSIS: Exacerbation of COPD secondary to bronchitis. SECONDARY DIAGNOSES: 1. Chronic abdominal pain. 2. Hypomagnesemia. 3. Hypokalemia. 4. Type 2 diabetes. 5. Hypertensive heart disease. 6. Abnormal liver function tests probably from alcohol use. HISTORY: Patient was admitted with exacerbation of COPD. HOSPITAL COURSE: Admitted to a medical bed and started on IV steroids, nebulized bronchodilator, and Levaquin. CT of the chest showed some mucus retention but no infiltrates and no masses. CT of the abdomen and pelvis was unremarkable. CT of the chest suggested an adrenal adenoma. This was not seen on the CT of the abdomen and pelvis. Today his white count was 19,000 on steroids, hemoglobin 14.4, platelets 207, sodium 139, potassium 3.7, BUN 13, creatinine 0.6. Magnesium was 1.9, was 0.6 yesterday. Calcium was low. He was given a little calcium supplement, and it has improved. DISPOSITION: He is discharged home in improved and stable condition. He will follow up with his primary care provider in a week. I spoke with his daughter at his request today. We discussed the case. He is profoundly deficient in vitamin D, and he has already had a prescription for that sent to the pharmacy. He is also low on magnesium. I cautioned about excess alcohol use, and we will give him some supplemental magnesium as well. He will follow up with his primary care provider in a week. Activity is as tolerated. Continue no added salt diet. MEDICATIONS: Medications will continue to be: 1. Symbicort two puffs b.i.d. (160-4.5). 2. Captopril 12.5 mg b.i.d. 3. Fluticasone one spray daily. 4. Protonix 40 mg daily. 5. His prednisone dose will be increased to 40 mg b.i.d. for five days. 6. Drisdol 50,000 units weekly. He will need a follow up vitamin D level in three months. 7. He has no infiltrates on his chest x-ray so I am changing his antibiotic on discharge to doxycycline 100 mg b.i.d. for seven days. He has chronic abdominal pain. I reviewed his CT of the abdomen and pelvis with the patient and his daughter. He has a colonoscopy already scheduled for the end of the month, and he is to follow up with Dr. Kaur for his abdominal pain. He will need an outpatient vitamin D level. He is on weekly high dose vitamin D and has risk of toxicity without close monitoring.
--- NOTE | 2021-06-29 14:12 | ED PDOC ---
Post-Departure Follow-Up radiology report faxed to Berenice Almonte MD Jun 29, 2021 14:12
== END 2021-06-26 11:28 | disposition home or self-care (01) | DRG 192 ==
LOC: M ED 14:11 → EDSEX 14:11 → EDBD 14:11 → M ED INP 19:29 → M MSPAV 22:04
PROVIDERS: ADMIT Internal Medicine; ATTEND Family Medicine
DX: J44.1 Chronic obstructive pulmonary disease with (acute) exacerbation (principal); R42 Dizziness and giddiness; E87.6 Hypokalemia; I10 Essential (primary) hypertension; E11.9 Type 2 diabetes mellitus without complications; F10.10 Alcohol abuse, uncomplicated; K21.9 Gastro-esophageal reflux disease without esophagitis; E55.9 Vitamin D deficiency, unspecified; R94.5 Abnormal results of liver function studies; F17.210 Nicotine dependence, cigarettes, uncomplicated; Z79.52 Long term (current) use of systemic steroids; Z79.899 Other long term (current) drug therapy; Z20.822 Contact with and (suspected) exposure to COVID-19

== ENCOUNTER → 2021-07-29 | Outpatient (CLI) | payer MEDICARE ==
[~2021-07-29] MED LIST changes: +DEXI30CA2 PO; +DOXY100C3 PO; +ERGO500029 PO; +FLUTISP NARES; +MAGN200T PO; +MAGN200T10 PO; +PANT40TA29 PO; +PRED10TA2 PO; +PRED20TA PO; +SUCR1TA PO; +SYMB16INH INH; +VITMTA PO
== END ==
LOC: M LABSMTC 09:13
PROVIDERS: ATTEND Anesthesiology
DX: Z01.818 Encounter for other preprocedural examination (principal)

== ENCOUNTER 2021-07-30 06:54 | Day surgery (SDC) | payer MEDICARE ==
[~2021-07-30] VITALS: Ht 177.8 cm; Wt 56.2 kg
--- OUTSIDE RECORDS SUMMARY | 2021-07-30 07:00 | CCD | Continuity of Care Document ---
Author Author Alon KAUR Organization Unknown Address [address] [place] [address] Phone [phone] Care Team Providers Care Malt Liquors Sales Representative Name Role Phone [place] M.D. AUTM [phone] Problems Active Problems Provider Date Screening for malignant neoplasm of colon Livan flores M.D. Onset: 06/18/2021 Social History Type Date Description Comments Sex Unknown ETOH Use Drinks 3 Alcoholic Beverages Per Day Tobacco Use Start: Unknown Patient is a current smoker, smo kes every day Allergies, Adverse Reactions, Alerts Description No Known Drug Allergies Medications Active Medications SIG Qnty Indications Ordering Provide r Date Sutab [id number] Tablets as directed 1box Livan Kaur M.D. 06/18/2021 Captopril 12.5mg Tablets Take One Tablet By Mouth Three Times Daily [place] M.D. Pantoprazole Sodium 40mg Tablets Irving Verdin M.D. Albuterol Sulfate HFA 108(90Base) mcg/Act Aerosol Inhale Two Puffs By Mouth Four Times Daily [place] M.D. Symbicort 160-4.5mcg/Act Aerosol [place] M.D. Prednisone 10mg Tablets Take One Tablet By Mouth Three Times Daily [place] M.D. Immunizations Description No Information Available Vital Signs Date Vital Result Comment 06/18/2021 1:22pm Height 70 inches 5'10" Weight 133.00 lb BP Systolic 159 mmHg BP Diastolic 83 mmHg Heart Rate 117 /min BMI (Body Mass Index) 19.1 kg/m2 Weight 60.329 kg Body Temperature 96.1 F Results Test Acquired Date Facility Test Result H/L Range Note Comprehensive Metabolic Profil 06/20/2021 [facility] [address] [place] [address] Glucose, Fasting 102 mg/dL High 70-100 1 Blood Urea Nitrogen 14 mg/dL Normal 7-18 Creatinine For GFR 0.81 mg/dL Normal 0.70-1.30 Glomerular Filtration Rate > 60.0 Normal >42 2 Sodium Level 140 mEq/L Normal 136-145 Potassium Serum 3.3 mEq/L Low 3.5-5.1 Chloride Level 104 mEq/L Normal 98-107 Carbon Dioxide Level 30 mEq/L Normal 21-32 Anion Gap 6 mEq/L Low 8-16 Calcium Level 7.3 mg/dL Low 8.8-10.2 Ast/Sgot 54 U/L High 7-37 Alt/SGPT 165 U/L High 12-78 Alkaline Phosphatase 70 U/L Normal 45-117 Bilirubin,Total 1.0 mg/dL Normal 0.2-1.0 Total Protein 6.0 GM/DL Low 6.4-8.2 Albumin 3.0 GM/DL Low 3.2-5.2 Albumin/Globulin Ratio 1.0 Normal 1 liver functions increased sl ightly need that Cat scan 2 Units are mL/min/1.73 m2 Chronic Kidney Disease Staging per NKF: Stage I & II GFR >=60 Normal to Mildly Decreased Stage III GFR 30-59 Moderately Decreased Stage IV GFR 15-29 Severely Decreased Stage V GFR <15 Very Little GFR Left ESRD GFR <15 on [facility] Procedures Description No Information Available Medical Devices Description No Information Available Encounters Description No Information Available Assessments Description No Information Available Plan of Treatment Future Appointment(s):* 08/03/2021 7:00 am - Mylene at Main Office * 08/17/2021 8:30 am - Livan Kaur M.D. at Main Office Functional Status Description No Information Available Mental Status Description No Information Available Referrals Description No Information Available
--- OUTSIDE RECORDS SUMMARY | 2021-07-30 07:00 | CCD | Continuity of Care Document ---
Author Author Alon KAUR Organization Unknown Address [address] [place] [address] Phone [phone] Care Team Providers Care Ingredient Handler Name Role Phone [place] M.D. AUTM [phone] Problems Active Problems Provider Date Screening for [...] Qnty Indications Ordering Provide r Date Sutab [id number] Tablets as directed 1box Livan Kaur M.D. [...] H/L Range Note Comprehensive Metabolic Profil 06/20/2021 [facility] [address] [place] [address] Glucose, Fasting 102 mg/dL High 70-100 1 [...] Little GFR Left ESRD GFR <15 on [facility] Procedures Date Code Description Status 06/18/2021 06627 Office/Outpatient New Low MDM 30 -44 Minutes Completed Medical Devices Description No Information Available Encounters Type Date Location Provider Dx Diagnosis Office Visit 06/18/2021 1:00p Main Office Livan Kaur M.D. R 10.30 Lower abdominal pain, unspecified R63.4 Abnormal weight loss Assessments Date Code Description Provider 06/18/2021 R10.30 Abdominal pain Livan mayer M.D. 06/18/2021 R63.4 Abnormal weight loss Livan rodriguez M.D. Plan of Treatment Future Appointment(s):* 08/03/2021 7:00 am - Pat-Remih at Main Office * 08/17/2021 8:30 am - Livan Kaur M.D. at Main Office 06/18/2021 - Livan Kaur M.D.* R10.30 Abdominal pain* Comments:* 80 yo wm who presents for a screening colonoscopy for a h/o abdominal pain/weight loss. Positive c/o abdominal pain, and weight loss, positive change in bowel h abits, no rectal bleeding. No family h/o colon cancer. No h/o chest pain, or sob. Plan:1. Colonoscopy to cecum.2. Informed consent.3. Labs 4. Abdominal ct scan. * R63.4 Abnormal weight loss* New Xrays:* CT Abd & Pelvis, Ordered: 06/18/21 * Comments:* 1. Set up a Colonoscopy.2. Informed consent given. Functional Status Description No Information Available Mental Status Description No Information Available Referrals Description No Information Available
--- OUTSIDE RECORDS SUMMARY | 2021-07-30 07:00 | CCD | Continuity of Care Document ---
Author Author Alon VÁSQUEZ DO Organization Unknown Address [address] [facility], [address] [place] [address] Phone [phone] Care Team Providers Care Distribution Operation Supervisor Name Role Phone Keaton Landaverde M.D. AUTM [place] M.D. AUTM [phone] Problems Active Problems Provider Date Essential hypertension Onset: 06/19/2021 Social History Type Date Description Comments Sex Unknown ETOH Use 2-3 A Day vodka Tobacco Use Start: Unknown Patient is a current smoker, smo kes every day 1 ppd x60 years presently smoking 7-8 cigs a day Recreational Drug Use Denies Drug Use Allergies, Adverse Reactions, Alerts Description No Known Drug Allergies Medications Active Medications SIG Qnty Indications Ordering Provide r Date Sucralfate 1gm Tablets 1 tab by mouth three times a day before meals 90tabs Aramis Vásquez, 07/09/2021 Captopril 12.5mg Tablets Twic e A Day Unknown Pantoprazole Sodium 40mg Tablets D R one tab once daily Unknown Albuterol Sulfate HFA 108(90Base) mcg/Act Aerosol inhale two puffs by mouth four times a day as needed Unknown Symbicort 80-4.5mcg/Act Aerosol 2 puff twice a day Unknown Hydrocodone Bitartrate/Acetaminophen 5-325mg Tablets 1 tab by mouth every 6 hours as needed pain Unknown Immunizations Description No Information Available Vital Signs Date Vital Result Comment 07/09/2021 9:46am BP Systolic 142 mmHg BP Diastolic 82 mmHg Body Temperature 98.0 F Height 70 inches 5'10" Weight 129.50 lb BMI (Body Mass Index) 18.6 kg/m2 [place] Body Weight 166 lb Weight 58.741 kg BSA (Body Surface Area) 1.74 m2 06/23/2021 3:36pm BP Systolic 174 mmHg BP Diastolic 86 mmHg Body Temperature 98.3 F Height 70 inches 5'10" Weight 135.12 lb BMI (Body Mass Index) 19.4 kg/m2 [place] Body Weight 166 lb Weight 61.293 kg BSA (Body Surface Area) 1.77 m2 Results Description No Information Available Procedures Date Code Description Status 06/23/2021 27046 Office/Outpatient New Low MDM 30 -44 Minutes Completed Medical Devices Description No Information Available Encounters Type Date Location Provider Dx Diagnosis Office Visit 06/23/2021 3:30p [facility] Aramis Vásquez DO K40.90 Unil inguinal hernia, w/o obst or gangr, not spcf as recur Assessments Date Code Description Provider 06/23/2021 K40.90 Unilateral inguinal hernia, without obstruction or gangrene, not specified as recurrent Aramis Vásquez DO Plan of Treatment 06/23/2021 - Aramis Vásquez DO* K40.90 Unilateral inguinal hernia, without obstruction or gangrene, not specified as recurrent* Comments:* 80y/o male presents with a reducible inguinal hernia on the right side. He has pain when it sticks out, but is able to keep it partially controlled with biker shorts. He is not too excited about surgery for now, and would like to wait and see how things go. He is aware of the surgery, and will call me if he decides that he would like to have it done. f/u as needed. Functional Status Description No Information Available Mental Status Description No Information Available Referrals Description No Information Available
--- OUTSIDE RECORDS SUMMARY | 2021-07-30 07:00 | CCD | Continuity of Care Document ---
Author Author Alon VÁSQUEZ DO Organization Unknown Address [address] [facility], [address] [place] [address] Phone [phone] Care Team Providers Care Farmworker [employer] Name Role Phone Keaton Landaverde M.D. AUTM [place] M.D. AUTM [phone] Problems Active Problems Provider Date Essential hypertension [...] SIG Qnty Indications Ordering Provide r Date Captopril 12.5mg Tablets Twic e A Day Unknown Pantoprazole Sodium 40mg Tablets D R one tab once daily Unknown Albuterol Sulfate HFA 108(90Base) mcg/Act Aerosol inhale two puffs by mouth four times a day as needed Unknown Symbicort 80-4.5mcg/Act Aerosol 2 puff twice a day Unknown Prednisone 10mg Tablets 40mg po qd x 4 days then 30mg qd x 4 days then 20mg qd x 4 days then 10mg qd x 4 days and stop Unknown Hydrocodone Bitartrate/Acetaminophen 5-325mg Tablets 1 tab by mouth every 6 hours as needed pain Unknown Immunizations Description No Information Available Vital Signs Date Vital Result Comment 06/23/2021 3:36pm BP Systolic 174 mmHg BP Diastolic 86 mmHg Body Temperature 98.3 F Height 70 inches 5'10" Weight 135.12 lb BMI (Body Mass Index) 19.4 kg/m2 [place] Body Weight 166 lb Weight 61.293 kg BSA (Body Surface Area) 1.77 m2 Results Description No Information Available Procedures Date Code Description Status 06/23/2021 88048 Office/Outpatient New Low MDM 30 -44 Minutes Completed Medical Devices Description No Information Available Encounters Type Date Location Provider Dx Diagnosis Office Visit 06/23/2021 3:30p [facility] Aramis Vásquez, K40.90 Unil inguinal hernia, w/o obst or [...]
--- OUTSIDE RECORDS SUMMARY | 2021-07-30 07:00 | CCD | Continuity of Care Document ---
Author Author Alon VÁSQUEZ DO Organization Unknown Address [address] [facility], [address] [place] [address] Phone [phone] Care Team Providers Care Grade Setter Name Role Phone Keaton Landaverde M.D. AUTM [phone] [place] M.D. AUTM [phone] Problems Active Problems Provider Date Essential hypertension [...] Sucralfate 1gm Tablets 1 tab by mouth four times a day before meals at bedtime 90tabs Aramis chaudhry, DO 07/09/[address] 1 tab by mouth every day before meals every morning 90caps Aramis freedman, DO 07/09/2021 Captopril 12.5mg Tablets Twic e A [...] lb BMI (Body Mass Index) 18.6 kg/m2 [place] Body Weight 166 lb Weight 58.741 kg BSA (Body Surface Area) 1.74 m2 06/23/2021 3:36pm BP Systolic 174 mmHg BP Diastolic 86 mmHg Body Temperature 98.3 F Height 70 inches 5'10" Weight 135.12 lb BMI (Body Mass Index) 19.4 kg/m2 [place] Body Weight 166 lb Weight 61.293 kg BSA (Body Surface Area) 1.77 m2 Results Description No Information Available Procedures Date Code Description Status 07/09/2021 96982 Office/Outpatient Established Mo d MDM 30-39 Min Completed 06/23/2021 26389 Office/Outpatient New Low MDM 30 -44 Minutes Completed Medical Devices Description No Information Available Encounters Type Date Location Provider Dx Diagnosis Office Visit 07/09/2021 9:45a [facility] Aramis Vásquez DO R12 Heartburn R63.4 Abnormal weight loss Office Visit 06/23/2021 3:30p [facility] Aramis Vásquez DO K40.90 Unil inguinal hernia, w/o obst or gangr, not spcf as recur Assessments Date Code Description Provider 07/09/2021 R12 Heartburn Aramis Vásquez DO 07/09/2021 R63.4 Abnormal weight loss Aramis freedman DO 06/23/2021 K40.90 Unilateral inguinal hernia, without obstruction or gangrene, not specified as recurrent Aramis Vásquez DO Plan of Treatment Future Appointment(s):* 08/11/2021 11:30 am - [facility] [place] at [facility] * 07/30/2021 7:30 am - Aramis Vásquez DO at [facility] 07/09/2021 - Aramis Vásquez DO* R12 Heartburn* Comments:* 80/o male with epigastric pain and a history of a gastric ulcer. Recommendation is to proceed with EGD. Risks include, but are not limited to, bleeding, infection, and perforation. He understands the risks, and signed consent. * R63.4 Abnormal weight loss* Comments:* 80y/o male presents with unexplained 50 pound weight loss for the last 4 months. Recommendation is to check an EGD and colonscopy. Risks include, but are not limited to, bleeding, infection, perforation, and missing a polyp or mass. He understands, and signed consent. Functional Status Description No Information Available Mental Status Description No Information Available Referrals Description No Information Available
--- OUTSIDE RECORDS SUMMARY | 2021-07-30 07:01 | CCD ---
Author Author [facility] Organization [facility] Address Unknown Phone Unavailable Care Team Providers Care Computational Theory Scientist Name Role Phone Pillo Kaur MD Unavailable Unavailable Pillo Kaur MD Unavailable Unavailable Pillo Kaur MD Unavailable Unavailable Pillo Kaur MD Unavailable Unavailable Pillo Kaur MD Unavailable Unavailable Pillo Kaur MD Unavailable Unavailable Pillo Kaur MD Unavailable Unavailable Pillo Kaur MD Unavailable Unavailable Pillo Kaur MD Unavailable Unavailable Pillo Kaur MD Unavailable Unavailable Pillo Kaur MD Unavailable Unavailable Pillo Kaur MD Unavailable Unavailable Pillo Kaur MD Unavailable Unavailable Pillo Kaur MD Unavailable Unavailable Pillo Kaur MD Unavailable Unavailable Pillo Kaur MD Unavailable Unavailable Pillo Kaur MD Unavailable Unavailable Pillo Kaur MD Unavailable Unavailable Pillo Kaur MD Unavailable Unavailable Pillo Kaur MD Unavailable Unavailable Pillo Kaur MD Unavailable Unavailable Pillo Kaur MD Unavailable Unavailable Pillo Kaur MD Unavailable Unavailable Pillo Kaur MD Unavailable Unavailable Pillo Kaur MD Unavailable Unavailable Pillo Kaur MD Unavailable Unavailable Pillo Kaur MD Unavailable Unavailable Pillo Kaur MD Unavailable Unavailable Pillo Kaur MD Unavailable Unavailable Pillo Kaur MD Unavailable Unavailable Natasha, S Livan MD Unavailable Unavailable Natasha, S Livan MD Unavailable Unavailable Natasha, S Livan MD Unavailable Unavailable Natasha, S Livan MD Unavailable Unavailable Natasha, S Livan MD Unavailable Unavailable Natasha, S Livan MD Unavailable Unavailable Natasha, S Livan MD Unavailable Unavailable Natasha, S Livan MD Unavailable Unavailable Natasha, S Livan MD Unavailable Unavailable Antasha, S Livan MD Unavailable Unavailable Natasha, S Livan MD Unavailable Unavailable Natasha, S Livan MD Unavailable Unavailable Natasha, S Livan MD Unavailable Unavailable Natasha, S Livan MD Unavailable Unavailable Natasha, S Livan MD Unavailable Unavailable Natasha, S Livan MD Unavailable Unavailable Natasha, S Livan MD Unavailable Unavailable Natasha, S Livan MD Unavailable Unavailable Natasha, S Livan MD Unavailable Unavailable Natasha, S Livan MD Unavailable Unavailable BRYDEN, A SAMI DO Unavailable Unavailable BRYDEN, A SAMI DO Unavailable Unavailable BRYDEN, A SAMI DO Unavailable Unavailable BRYDEN, A SAMI DO Unavailable Unavailable BRYDEN, A SAMI DO Unavailable Unavailable BRYDEN, A SAMI DO Unavailable Unavailable BRYDEN, A SAMI DO Unavailable Unavailable BRYDEN, A SAMI DO Unavailable Unavailable BRYDEN, A SAMI DO Unavailable Unavailable BRYDEN, A SAMI DO Unavailable Unavailable BRYDEN, A SAMI DO Unavailable Unavailable BRYDEN, A SAMI DO Unavailable Unavailable BRYDEN, A SAMI DO Unavailable Unavailable BRYDEN, A SAMI DO Unavailable Unavailable BRYDEN, A SAMI DO Unavailable Unavailable BRYDEN, A SAMI DO Unavailable Unavailable BRYDEN, A SAMI DO Unavailable Unavailable BRYDEN, A SAMI DO Unavailable Unavailable BRYDEN, A SAMI DO Unavailable Unavailable BRYDEN, A SAMI DO Unavailable Unavailable BRYDEN, A SAMI DO Unavailable Unavailable BRYDEN, A SAMI DO Unavailable Unavailable BRYDEN, A SAMI DO Unavailable Unavailable BRYDEN, A SAMI DO Unavailable Unavailable BRYDEN, A SAMI DO Unavailable Unavailable BRYDEN, A SAMI DO Unavailable Unavailable BRYDEN, A SMAI DO Unavailable Unavailable BRYDEN, A SAMI DO Unavailable Unavailable BRYDEN, A SAMI DO Unavailable Unavailable Re-disclosure Warning The records that you are about to access may contain information from federally-assisted alcohol or drug abuse programs. If such information is present, then the following federally mandated warning applies: This information has been disclosed to you from records protected by federal confidentiality rules (42 CFR part 2). The federal rules prohibit you from making any further disclosure of this information unless further disclosure is expressly permitted by the written consent of the person to whom it pertains or as otherwise permitted by 42 CFR part 2. A general authorization for the release of medical or other information is NOT sufficient for this purpose. The Federal rules restrict any use of the information to criminally investigate or prosecute any alcohol or drug abuse patient.The records that you are about to access may contain highly sensitive health information, the redisclosure of which is protected by Article 27-F of the [facility] Public Health law. If you continue you may have access to information: Regarding HIV / AIDS; Provided by facilities licensed or operated by the [facility] Office of Mental Health; or Provided by the [facility] Office for People With Developmental Disabilities. If such information is present, then the following [facility] mandated warning applies: This information has been disclosed to you from confidential records which are protected by state law. State law prohibits you from making any further disclosure of this information without the specific written consent of the person to whom it pertains, or as otherwise permitted by law. Any unauthorized further disclosure in violation of state law may result in a fine or long term sentence or both. A general authorization for the release of medical or other information is NOT sufficient authorization for further disc losure. Family History Family Member Name Family Member Gender Family Member Status Date o f Status Description Data Source(s) Unknown Unknown Problem [facility] ([facility]) Encounters Encounter Providers Location Date Indications Data Source(s ) Outpatient Attender: SAMI Arce/Rl/Daniel/Manny ndjob 07/09/2021 09:45:00 AM EDT [facility] ([facility]) Outpatient Attender: SAMI Arce/Rl/Daniel/Manny ndjob 06/23/2021 03:30:00 PM EDT [facility] ([facility]) Outpatient Attender: Livan Kaur MD Main Office 06/18/2021 01:00:00 PM EDT [facility] ([facility]) Immunizations Vaccine Date Status Description Data Source(s) COVID-19 VACCINE Moderna 12/17/2020 12:00:00 AM EST completed [facility] Vaccine Series Complete: YESThis Data wa s Submitted to [facility] Via [employer]. COVID-19 VACCINE Moderna 11/19/2020 12:00:00 AM EST completed [facility] Vaccine Series Complete: NOThis Data was Submitted to [facility] Via [employer] Edge. Medications Medication Brand Name Start Date Product Form Dose Route Admi nistrative Instructions Pharmacy Instructions Status Indications Reaction Description Data Source(s) dexlansoprazole 30 MG Delayed Release Oral Capsule [Dexilant ] Dexilant 07/09/2021 12:00:00 AM EDT ORAL active [facility] ([facility], ) Sucralfate 1000 MG Oral Tablet Sucralfate 07/09/2021 12:00:00 AM EDT ORAL active [facility] ([facility], ) Sutab Sutab 06/18/2021 12:00:00 AM EDT active [facility] ([facility]) Insurance Providers Payer name Policy type / Coverage type Policy ID Covered constitution party ID Covered constitution party's relationship to roca Policy Roca Plan Information MEDICARE COMPLETE [id number] SP [id number] [facility]/Medicare Solu Commercial [id number] Self [id number] MEDICARE COMPLETE [id number] SP [id number] MEDICARE COMPLETE-[facility] P [id number] S [id number] Problems, Conditions, and Diagnoses Code Display Name Description Problem Type Effective Dates Data Source(s) 96345347 Essential hypertension Essential hypertension Problem 06/19/2021 12:00:00 AM EDT [facility] ([facility], ) [id number] Screening for malignant neoplasm of colo n Screening for malignant neoplasm of colon Problem 06/18/2021 12:00:00 AM EDT [facility] ([facility]) Surgeries/Procedures Procedure Description Date Indications Data Source(s) OFFICE OUTPATIENT VISIT 25 MINUTES 07/09/2021 12:00:00 AM EDT [facility] ([facility], ) OFFICE OUTPATIENT NEW 30 MINUTES 06/23/2021 12:00:00 A M EDT [facility] ([facility]) OFFICE OUTPATIENT NEW 30 MINUTES 06/18/2021 12:00:00 A M EDT [facility] ([facility]) Results ID Date Data Source [id number] 06/24/2021 03:36:00 PM EDT [facility] Name Value Range Interpretation Code Description Data Mary rce(s) Supporting Document(s) SARS coronavirus 2 RNA [Presence] in Res piratory specimen by ALBERTO with probe detection NEGATIVE [facility]OH This lab was ordered by [facility] a nd reported by [facility]. ID Date Data Source [id number] 06/20/2021 09:00:00 AM EDT [facility] Name Value Range Interpretation Code Description Data Mary rce(s) Supporting Document(s) Glucose, Fasting 102 mg/dL 70-100 [facility] ([facility]) liver functions increased slightly need that Cat scan Creatinine For GFR 0.81 mg/dL 0.70-1.30 [facility]) liver functions increased slightly need that Cat scan Blood Urea Nitrogen 14 mg/dL 7-18 [facility] ([facility]) liver functions increased slightly need that Cat scan Sodium Level 140 meq/L 136-145 [facility] ([facility]) liver functions increased slightly need that Cat scan Glomerular Filtration Rate Laboratory test result [facility] ([facility]) liver functions increased slightly need that Cat scan Chloride Level 104 meq/L 98-107 [facility]) liver functions increased slightly need that Cat scan Potassium Serum 3.3 meq/L 3.5-5.1 [facility] ([facility]) liver functions increased slightly need that Cat scan Carbon Dioxide Level 30 meq/L 21-32 [facility] liver functions increased slightly need that Cat scan Anion Gap 6 meq/L 8-16 [facility] liver functions increased slightly need that Cat scan Calcium Level 7.3 mg/dL 8.8-10.2 [facility] ([facility]) liver functions increased slightly need that Cat scan Ast/Sgot 54 U/L 7-37 [facility] liver functions increased slightly need that Cat scan Alkaline Phosphatase 70 U/L 45-117 [facility] liver functions increased slightly need that Cat scan Alt/SGPT 165 U/L 12-78 [facility] liver functions increased slightly need that Cat scan Bilirubin,Total 1.0 mg/dL 0.2-1.0 [facility] ([facility]) liver functions increased slightly need that Cat scan Albumin 3.0 GM/DL 3.2-5.2 [facility] liver functions increased slightly need that Cat scan Total Protein 6.0 GM/DL 6.4-8.2 [facility] ([facility]) liver functions increased slightly need that Cat scan Albumin/Globulin Ratio 1.0 [facility] ([facility]) liver functions increased slightly need that Cat scan Procedure Social History No Information Vital Signs ID Date Data Source UNK Name Value Range Interpretation Code Description Data Source(s) Body temperature 98.0 [degF] 98.0 [degF] [facility] ([facility]) Systolic blood pressure 142 mm[Hg] 142 mm[Hg] [facility] ([facility]) Diastolic blood pressure 82 mm[Hg] 82 mm[Hg] [facility] ([facility]) Body weight 58.741 kg 58.741 kg [facility] ([facility]) Body surface area Derived from formula 1.74 m2 1.74 m2 [facility] ([facility]) Body height 70 [in_i] 70 [in_i] [facility] ([facility]) 5'10" Body weight 129.50 [lb_av] 129.50 [lb_av] [facility] Body mass index (BMI) [Ratio] 18.6 kg/m2 18.6 k g/m2 [facility] ([facility]) Miller body weight 166 [lb_av] 166 [lb_av] [facility] ([facility]) Systolic blood pressure 174 mm[Hg] 174 mm[Hg] [facility] ([facility]) Diastolic blood pressure 86 mm[Hg] 86 mm[Hg] [facility] ([facility]) Body temperature 98.3 [degF] 98.3 [degF] [facility] ([facility]) Body height 70 [in_i] 70 [in_i] [facility] ([facility]) 5'10" Body weight 135.12 [lb_av] 135.12 [lb_av] [facility] ([facility]) Body mass index (BMI) [Ratio] 19.4 kg/m2 19.4 k g/m2 [facility] ([facility]) Miller body weight 166 [lb_av] 166 [lb_av] [facility] ([facility]) Body weight 61.293 kg 61.293 kg [facility] ([facility]) Body surface area Derived from formula 1.77 m2 1.77 m2 [facility] ([facility]) Heart rate 117 /min 117 /min [facility] ([facility]) Body height 70 [in_i] 70 [in_i] [facility]) 5'10" Body weight 133.00 [lb_av] 133.00 [lb_av] [facility] ([facility]) Systolic blood pressure 159 mm[Hg] 159 mm[Hg] M [facility] ([facility]) Body mass index (BMI) [Ratio] 19.1 kg/m2 19.1 k g/m2 [facility] ([facility]) Diastolic blood pressure 83 mm[Hg] 83 mm[Hg] [facility] ([facility]) Body weight 60.329 kg 60.329 kg [facility] ([facility]) Body temperature 96.1 [degF] 96.1 [degF] [facility] ([facility])
--- OUTSIDE RECORDS SUMMARY | 2021-07-30 07:01 | CCD | Continuity of Care Document ---
Author Author Alon THAO DO Organization Unknown Address [address], [address] [place] [address] Phone [phone] Care Team Providers Care Reclaimer Name Role Phone Keaton Landaverde M.D. AUTM [place] M.D. AUTM [phone] Problems Active Problems Provider Date Essential hypertension [...] lb BMI (Body Mass Index) 19.4 kg/m2 [place] Body Weight 166 lb Weight 61.293 kg BSA (Body Surface Area) 1.77 m2 Results Description No Information Available Procedures Description No Information Available Medical Devices Description No Information Available Encounters Description No Information Available Assessments Description No Information Available Plan of Treatment No Information Available Functional Status Description No Information Available Mental Status Description No Information Available Referrals Description No Information Available
[2021-07-30] MEDS ORDERED: NS 1,000 ML IV ONE (07:30)
[2021-07-30] MEDS ORDERED: LIDOCAINE 2% 100MG/5ML SDV (FOR ANES.) As Ordered ONE ×2 (07:32→11:59)
[2021-07-30] MEDS ORDERED: propofoL 200 MG/20 ML VIAL As Ordered ONE ×2 (07:32→11:59)
[2021-07-30] MEDS ORDERED: fentaNYL 100 MCG/2 ML INJECTION (J3010) As Ordered ONE (07:33)
[2021-07-30] MEDS ORDERED: ONDANSETRON 4MG/2ML VIAL As Ordered ONE (08:03)
--- NOTE | 2021-07-30 08:12 | ROOR ---
Patient Name: Alon Law Procedure Date: 07/30/2021 7:33 AM Date of : 1940 Age: 80 Room: [facility] Gender: Male Note Status: Finalized Procedure: Upper GI endoscopy Indications: Heartburn Providers: DO Luzmaria Dodge MD: YESENIA MARQUEZ MD Requesting Provider: Medicines: Propofol per Anesthesia Complications: No immediate complications. Procedure: Pre-Anesthesia Assessment: - Prior to the procedure, a History and Physical was performed, and patient medications and allergies were reviewed. The patient is competent. The risks and benefits of the procedure and the sedation options and risks were discussed with the patient. All questions were answered and informed consent was obtained. Patient identification and proposed procedure were verified by the physician, the nurse, the control panel operator and the transmission technician in the endoscopy suite. Mental Status Examination: alert and oriented. Airway Examination: normal oropharyngeal airway and neck mobility. Respiratory Examination: clear to auscultation. CV Examination: normal. Prophylactic Antibiotics: The patient does not require prophylactic antibiotics. Prior Anticoagulants: The patient has taken no previous anticoagulant or antiplatelet agents. ASA Grade Assessment: III - A patient with severe systemic disease. After reviewing the risks and benefits, the patient was deemed in satisfactory condition to undergo the procedure. The anesthesia plan was to use monitored anesthesia care (MAC). Immediately prior to administration of medications, the patient was re-assessed for adequacy to receive sedatives. The heart rate, respiratory rate, oxygen saturations, blood pressure, adequacy of pulmonary ventilation, and response to care were monitored throughout the procedure. The physical status of the patient was re-assessed after the procedure. The Endoscope was introduced through the mouth, and advanced to the second part of duodenum. The upper GI endoscopy was accomplished without difficulty. The patient tolerated the procedure well. Findings: A small hiatal hernia was present. Diffuse mild inflammation characterized by congestion (edema), erythema, friability and granularity was found in the entire examined stomach. Biopsies were taken with a cold forceps for Helicobacter pylori testing. Biopsies were taken with a cold forceps for histology. Impression: - Small hiatal hernia. - Gastritis. Biopsied. Recommendation: - Patient has a contact number available for emergencies. The signs and symptoms of potential delayed complications were discussed with the patient. Return to normal activities tomorrow. Written discharge instructions were provided to the patient. - Await pathology results. - Return to my office at appointment to be scheduled. Procedure Code(s): --- Professional --- 61629, Esophagogastroduodenoscopy, flexible, transoral; with biopsy, single or multiple Diagnosis Code(s): --- Professional --- K44.9, Diaphragmatic hernia without obstruction or gangrene K29.70, Gastritis, unspecified, without bleeding R12, Heartburn CPT copyright 2019 [employer]. All rights reserved. The codes documented in this report are preliminary and upon manager air review may be revised to meet current compliance requirements. Aramis Vásquez DO 07/30/2021 8:12:49 AM Electronically signed by Aramis Vásquez DO Number of Addenda: 0 Note Initiated On: 07/30/2021 7:33 AM Estimated Blood Loss: Estimated blood loss was minimal.
--- NOTE | 2021-07-30 08:17 | ROOR ---
Patient Name: Alon Law Procedure Date: 07/30/2021 7:34 AM Date of : 1940 Age: 80 Room: [facility] Gender: Male Note Status: Finalized Procedure: Colonoscopy Indications: Weight loss Providers: DO Luzmaria Dodge MD: RANDALL MARQUEZ MD Requesting Provider: Medicines: Propofol per Anesthesia Complications: No immediate complications. Procedure: Pre-Anesthesia Assessment: - Prior to the procedure, a History and Physical was performed, and patient medications and allergies were reviewed. The patient is competent. The risks and benefits of the procedure and the sedation options and risks were discussed with the patient. All questions were answered and informed consent was obtained. Patient identification and proposed procedure were verified by the physician, the nurse, the as400 operator and the bakery technician in the endoscopy suite. Mental Status Examination: alert and oriented. Airway Examination: normal oropharyngeal airway and neck mobility. Respiratory Examination: clear to auscultation. CV Examination: normal. Prophylactic Antibiotics: The patient does not require prophylactic antibiotics. Prior Anticoagulants: The patient has taken no previous anticoagulant or antiplatelet agents. ASA Grade Assessment: III - A patient with severe systemic disease. After reviewing the risks and benefits, the patient was deemed in satisfactory condition to undergo the procedure. The anesthesia plan was to use monitored anesthesia care (MAC). Immediately prior to administration of medications, the patient was re-assessed for adequacy to receive sedatives. The heart rate, respiratory rate, oxygen saturations, blood pressure, adequacy of pulmonary ventilation, and response to care were monitored throughout the procedure. The physical status of the patient was re-assessed after the procedure. The Colonoscope was introduced through the anus and advanced to the cecum, identified by appendiceal orifice and ileocecal valve. The colonoscopy was performed without difficulty. The patient tolerated the procedure well. Findings: Non-bleeding internal hemorrhoids were found during retroflexion. The hemorrhoids were mild and Grade II (internal hemorrhoids that prolapse but reduce spontaneously). Multiple small and large-mouthed diverticula were found in the sigmoid colon and descending colon. A less than 5 mm polyp was found in the descending colon. The polyp was hyperplastic. The polyp was removed with a cold biopsy forceps. Resection and retrieval were complete. Estimated blood loss was minimal. Two hyperplastic polyps were found in the sigmoid colon. The polyps were 6 to 8 mm in size. These polyps were removed with a hot snare. Resection and retrieval were complete. Estimated blood loss was minimal. Impression: - Non-bleeding internal hemorrhoids. - Diverticulosis in the sigmoid colon and in the descending colon. - One less than 5 mm polyp in the descending colon, removed with a cold biopsy forceps. Resected and retrieved. - Two 6 to 8 mm polyps in the sigmoid colon, removed with a hot snare. Resected and retrieved. Recommendation: - Patient has a contact number available for emergencies. The signs and symptoms of potential delayed complications were discussed with the patient. Return to normal activities tomorrow. Written discharge instructions were provided to the patient. - Await pathology results. - Repeat colonoscopy in 3 - 5 years for surveillance based on pathology results. - Return to my office at appointment to be scheduled. Procedure Code(s): --- Professional --- 99097, Colonoscopy, flexible; with removal of tumor(s), polyp(s), or other lesion(s) by snare technique 68782, 59, Colonoscopy, flexible; with biopsy, single or multiple Diagnosis Code(s): --- Professional --- K64.1, Second degree hemorrhoids K63.5, Polyp of colon R63.4, Abnormal weight loss K57.30, Diverticulosis of large intestine without perforation or abscess without bleeding CPT copyright 2019 [employer]. All rights reserved. The codes documented in this report are preliminary and upon director graphics review may be revised to meet current compliance requirements. Aramis Vásquez DO 07/30/2021 8:17:09 AM Electronically signed by Aramis Vásquez DO Number of Addenda: 0 Note Initiated On: 07/30/2021 7:34 AM Estimated Blood Loss: Estimated blood loss was minimal.
[2021-07-30 08:38] VITALS: BP 182/79
== END 2021-07-30 08:40 | disposition home or self-care (01) ==
LOC: M OPP 06:54
PROVIDERS: ATTEND Surgery
DX: K63.5 Polyp of colon (principal); K57.30 Diverticulosis of large intestine without perforation or abscess without bleeding; K64.1 Second degree hemorrhoids; R63.4 Abnormal weight loss; K44.9 Diaphragmatic hernia without obstruction or gangrene; K29.70 Gastritis, unspecified, without bleeding; R12 Heartburn; Z79.891 Long term (current) use of opiate analgesic; Z79.899 Other long term (current) drug therapy; F17.210 Nicotine dependence, cigarettes, uncomplicated
CPT/HCPCS: 43239; 45380; 45385; 88305; J2405; J3010

== ENCOUNTER → 2021-08-19 | Outpatient (CLI) | payer MEDICARE ==
--- NOTE | 2021-08-19 11:51 | REP ---
INDICATION: RUQ PAIN. COMPARISON: Ultrasound 12/17/2008, CT 06/25/2021. TECHNIQUE: Real-time sonographic evaluation of right upper quadrant performed. FINDINGS: There are multiple mobile gallstones in the gallbladder without evidence of gallbladder wall thickening.. There is no intrahepatic or extrahepatic biliary dilatation, common bile duct measures 6 mm in maximum diameter. The liver demonstrates homogeneous echotexture with no gross mass. The pancreas demonstrates homogeneous echotexture with no gross mass. The right kidney demonstrates no hydronephrosis, with a normal size of 9.4 cm in length. No free fluid is seen. IMPRESSION: Multiple mobile gallstones in the gallbladder without evidence of gallbladder wall thickening, pericholecystic fluid or biliary dilatation. <Electronically signed by Aramis Villavicencio > 08/19/21 114
== END ==
LOC: M RAD 07:34
PROVIDERS: ATTEND Physician Assistant
DX: K80.70 Calculus of gallbladder and bile duct without cholecystitis without obstruction (principal)

== ENCOUNTER → 2021-09-23 | Outpatient (CLI) | payer MEDICARE ==
--- NOTE | 2021-09-23 08:04 | REP ---
INDICATION: HTN,COPD,PREOP XR, EKG, LAB COMPARISON: 06/24/2021 TECHNIQUE: PA and lateral. FINDINGS: The mediastinum and cardiac silhouette are normal. The lung justice demonstrate chronic COPD and interstitial changes. No acute consolidation or effusion. No pneumothorax. The skeletal structures demonstrate generalized osteopenia and degenerative changes. IMPRESSION: No acute cardiopulmonary process. <Electronically signed by Bernard Wallace > 09/23/21 0800
[2021-09-23 08:24] LABS: HEMATOCRIT 42.7 % (42.0-52.0); HEMOGLOBIN 13.8 g/dl (13.5-17.5); MEAN CORPUSCULAR HEMOGLOBIN 30.2 pg (27.0-33.0); MEAN CORPUSCULAR HGB CONC 32.3 g/dl (32.0-36.5); MEAN CORPUSCULAR VOLUME 93.4 fl (80.0-96.0); PLATELET COUNT, AUTOMATED 379 10^3/uL (150-450); RED BLOOD COUNT 4.57 10^6/uL (4.30-6.10); WHITE BLOOD COUNT 13.9 10^3/uL (4.0-10.0)
[2021-09-23 08:35] LABS: INR 0.89; PROTHROMBIN TIME 12.5 SECONDS (12.7-14.5)
[2021-09-23 08:55] LABS: ALBUMIN 2.9 GM/DL (3.2-5.2); ALT/SGPT 19 U/L (12-78); BILIRUBIN,TOTAL 0.5 MG/DL (0.2-1.0); BLOOD UREA NITROGEN 14 MG/DL (7-18); CARBON DIOXIDE LEVEL 29 MEQ/L (21-32); CHLORIDE LEVEL 103 MEQ/L (98-107); CHOLESTEROL LEVEL 213 MG/DL (<200); CHOLESTEROL RISK RATIO 4.176 (<5); CREATININE FOR GFR 0.84 MG/DL (0.70-1.30); GLOMERULAR FILTRATION RATE > 60.0 (>42); GLUCOSE, FASTING 95 MG/DL (70-100); HDL CHOLESTEROL 51 MG/DL (>40); LDL CHOLESTEROL 134 MG/DL (<100); NON-HDL-C 162 MG/DL; POTASSIUM SERUM 4.2 MEQ/L (3.5-5.1); PROSTATIC SPECIFIC AG MONITOR 0.59 NG/ML (< 4.00); SODIUM LEVEL 139 MEQ/L (136-145); TOTAL PROTEIN 6.5 GM/DL (6.4-8.2); TRIGLYCERIDES LEVEL 140 MG/DL (<150)
--- NOTE | 2021-09-24 07:38 | ECGEPIP ---
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
== END ==
LOC: M LAB 07:27
PROVIDERS: ATTEND Family Medicine
DX: Z01.818 Encounter for other preprocedural examination (principal); J44.9 Chronic obstructive pulmonary disease, unspecified; I10 Essential (primary) hypertension; R97.20 Elevated prostate specific antigen [PSA]; Z79.01 Long term (current) use of anticoagulants

== ENCOUNTER → 2021-10-03 | Outpatient (CLI) | payer MEDICARE | LOC: M LABSMTC 09:34 | PROVIDERS: ATTEND Anesthesiology | DX: Z01.818 Encounter for other preprocedural examination (principal); Z11.52 Encounter for screening for COVID-19 ==

== ENCOUNTER 2021-10-08 09:14 | Day surgery (SDC) | payer MEDICARE ==
[~2021-10-08] VITALS: Ht 177.8 cm; Wt 53.5 kg
[~2021-10-08 09:14] MED LIST changes: +LIDOCAINE 2% 100MG/5ML SDV (FOR ANES.) As Ordered ONE; +MIDAZOLAM INJ 2MG/2ML VIAL (J2250 PER 1MG) As Ordered ONE; +ONDANSETRON 4MG/2ML VIAL As Ordered ONE; +ROCURONIUM BROMIDE 50 MG/5 ML VIAL As Ordered ONE; +SEVOFLURANE INHAL SOLN 250 ML BTL As Ordered ONE; +ceFAZolin SOD 2 GM in IV 1 EA IV ONE; +dexameTHASONE 4 MG/ML 1ML VIAL (J1100 PER 1MG) As Ordered ONE; +fentaNYL 100 MCG/2 ML INJECTION As Ordered ONE; +propofoL 200 MG/20 ML VIAL As Ordered ONE
[2021-10-08] MEDS ORDERED: LIDOCAINE 2% 100MG/5ML SDV (FOR ANES.) As Ordered ONE ×2 (09:32→13:22)
[2021-10-08] MEDS ORDERED: SUGAMMADEX SODIUM 500 MG/5 ML VIAL (BRIDION) As Ordered ONE (09:39)
[2021-10-08] MEDS ORDERED: LR 1,000 ML IV ONE (09:45)
[2021-10-08] MEDS ORDERED: BUPIVACAINE/EPIN 0.25% 30 ML VIAL As Ordered ONE (11:12)
[2021-10-08] MEDS ORDERED: fentaNYL 100 MCG/2 ML INJECTION As Ordered ONE (12:09)
[2021-10-08] MEDS ORDERED: ACETAMINOPHEN 1000MG 100ML IV BTL (OFIRMEV) (J0131 PER 10MG) As Ordered ONE (12:54)
[2021-10-08] MEDS ORDERED: fentaNYL 100 MCG/2 ML INJECTION IV PRN (13:40)
[2021-10-08] MEDS ORDERED: LR 1,000 ML IV SCH (13:40)
[2021-10-08] MEDS ORDERED: ONDANSETRON 4MG/2ML VIAL IV PRN (13:40)
[2021-10-08] MEDS ORDERED: NORCO, ANEXSIA 5/325MG TABLET (HYDROcodone/ACETAMINOPHEN) PO PRN (13:40)
[2021-10-08] MEDS ORDERED: oxyCODONE 5MG TAB PO PRN (13:40)
[2021-10-08] MEDS ORDERED: KETOROLAC 60MG 2ML VIAL As Ordered ONE (14:29)
[2021-10-08 14:30] VITALS: BP 168/86
== END 2021-10-08 15:26 | disposition home or self-care (01) ==
LOC: M SDC 09:14
PROVIDERS: ATTEND Surgery
DX: K40.90 Unilateral inguinal hernia, without obstruction or gangrene, not specified as recurrent (principal); I10 Essential (primary) hypertension; K21.9 Gastro-esophageal reflux disease without esophagitis; J44.9 Chronic obstructive pulmonary disease, unspecified; R51.9 Headache, unspecified; Z79.899 Other long term (current) drug therapy; Z79.891 Long term (current) use of opiate analgesic; Z79.51 Long term (current) use of inhaled steroids
CPT/HCPCS: 49650; C1781; J0131; J0690; J1100; J1885; J2250; J2405; J3010; S2900

== ENCOUNTER → 2022-02-05 | Outpatient (CLI) | payer MEDICARE ==
[~2022-02-05] MED LIST changes: -LIDOCAINE 2% 100MG/5ML SDV (FOR ANES.) As Ordered ONE; -MIDAZOLAM INJ 2MG/2ML VIAL (J2250 PER 1MG) As Ordered ONE; -ONDANSETRON 4MG/2ML VIAL As Ordered ONE; -ROCURONIUM BROMIDE 50 MG/5 ML VIAL As Ordered ONE; -SEVOFLURANE INHAL SOLN 250 ML BTL As Ordered ONE; -ceFAZolin SOD 2 GM in IV 1 EA IV ONE; -dexameTHASONE 4 MG/ML 1ML VIAL (J1100 PER 1MG) As Ordered ONE; -fentaNYL 100 MCG/2 ML INJECTION As Ordered ONE; -propofoL 200 MG/20 ML VIAL As Ordered ONE
== END ==
LOC: M RAD 07:42
PROVIDERS: ATTEND Family Medicine
DX: J18.9 Pneumonia, unspecified organism (principal)

== ENCOUNTER → 2022-02-11 | Outpatient (CLI) | payer MEDICARE ==
[2022-02-11 08:01] LABS: HEMATOCRIT 38.2 % (42.0-52.0); HEMOGLOBIN 12.9 g/dl (13.5-17.5); MEAN CORPUSCULAR HEMOGLOBIN 27.9 pg (27.0-33.0); MEAN CORPUSCULAR HGB CONC 33.8 g/dl (32.0-36.5); MEAN CORPUSCULAR VOLUME 82.7 fl (80.0-96.0); PLATELET COUNT, AUTOMATED 386 10^3/uL (150-450); RED BLOOD COUNT 4.62 10^6/uL (4.30-6.10); WHITE BLOOD COUNT 15.4 10^3/uL (4.0-10.0)
[2022-02-11 08:23] LABS: ERYTHROCYTE SEDIMENTATION RATE 10 mm/hr (0-20)
[2022-02-11 08:28] LABS: BLOOD UREA NITROGEN 21 MG/DL (7-18); CARBON DIOXIDE LEVEL 27 MEQ/L (21-32); CHLORIDE LEVEL 100 MEQ/L (98-107); CREATININE FOR GFR 0.76 MG/DL (0.70-1.30); GLOMERULAR FILTRATION RATE > 60.0 (>42); GLUCOSE, FASTING 110 MG/DL (70-100); POTASSIUM SERUM 4.8 MEQ/L (3.5-5.1); SODIUM LEVEL 133 MEQ/L (136-145)
[2022-02-11 08:29] LABS: ALBUMIN 3.4 GM/DL (3.2-5.2); ALT/SGPT 24 U/L (12-78); BILIRUBIN,TOTAL 0.5 MG/DL (0.2-1.0); CALCIUM LEVEL 10.4 MG/DL (8.8-10.2); TOTAL PROTEIN 6.4 GM/DL (6.4-8.2)
[2022-02-11 11:03] LABS: TESTOSTERONE 319 NG/DL (241-827)
== END ==
LOC: M LAB 07:08
PROVIDERS: ATTEND Family Medicine
DX: I10 Essential (primary) hypertension (principal)

== ENCOUNTER → 2022-02-25 | Outpatient (CLI) | payer MEDICARE ==
[~2022-02-25] MED LIST changes: +ISOVUE-370 76% 100ML VIAL As Ordered ONE
== END ==
LOC: M RAD 07:58
PROVIDERS: ATTEND Family Medicine
DX: R91.1 Solitary pulmonary nodule (principal); J44.9 Chronic obstructive pulmonary disease, unspecified
CPT/HCPCS: 71260; Q9967

== ENCOUNTER 2022-03-15 13:42 | Inpatient (IN) | payer MEDICARE ==
[~2022-03-15] VITALS: Ht 177.8 cm; Wt 43.8 kg
[~2022-03-15 13:42] MED LIST changes: -ISOVUE-370 76% 100ML VIAL As Ordered ONE
[2022-03-15] MEDS ORDERED: DICY20TA20 (13:53)
[2022-03-15] MEDS ORDERED: CEFT1INJ65 IM (13:53)
[2022-03-15] MEDS ORDERED: METH125I3 IM (13:53)
[2022-03-15] MEDS ORDERED: SUCR1TAB56 (13:53)
[2022-03-15 14:51] LABS: BASO % 0.1 % (0.0-1.0); EOS # 0.1 10^3/uL (0.0-0.5); EOS % 0.4 % (0.0-3.0); HEMATOCRIT 40.6 % (42.0-52.0); HEMOGLOBIN 13.2 g/dl (13.5-17.5); LYMPH # 2.2 10^3/uL (1.5-5.0); LYMPH % 15.4 % (24.0-44.0); MEAN CORPUSCULAR HEMOGLOBIN 27.2 pg (27.0-33.0); MEAN CORPUSCULAR HGB CONC 32.5 g/dl (32.0-36.5); MEAN CORPUSCULAR VOLUME 83.7 fl (80.0-96.0); MONO # 0.8 10^3/uL (0.0-0.8); MONO % 5.4 % (2.0-8.0); NEUTROPHILS # 11.4 10^3/uL (1.5-8.5); NEUTROPHILS % 78.3 % (36.0-66.0); PLATELET COUNT, AUTOMATED 352 10^3/uL (150-450); RED BLOOD COUNT 4.85 10^6/uL (4.30-6.10); WHITE BLOOD COUNT 14.6 10^3/uL (4.0-10.0)
[2022-03-15 15:02] LABS: INR 0.95; PROTHROMBIN TIME 13.1 SECONDS (12.7-14.5)
[2022-03-15 15:03] LABS: PARTIAL THROMBOPLASTIN TIME 25.8 SECONDS (25.9-37.0)
[2022-03-15 15:27] LABS: ALT/SGPT 36 U/L (12-78); BILIRUBIN,DIRECT 0.3 MG/DL (0.0-0.2); BILIRUBIN,TOTAL 0.7 MG/DL (0.2-1.0); BLOOD UREA NITROGEN 22 MG/DL (7-18); CARBON DIOXIDE LEVEL 25 MEQ/L (21-32); CHLORIDE LEVEL 96 MEQ/L (98-107); CREATININE FOR GFR 1.08 MG/DL (0.70-1.30); GLOMERULAR FILTRATION RATE > 60.0 (>42); GLUCOSE, FASTING 108 MG/DL (70-100); SODIUM LEVEL 131 MEQ/L (136-145); TOTAL PROTEIN 5.9 GM/DL (6.4-8.2)
[2022-03-15 15:28] LABS: NT-PRO BNP 1120 PG/ML (<450)
[2022-03-15 15:37] LABS: CK-MB VALUE MASS 1.5 NG/ML (<3.6); MB/CK RELATIVE INDEX 1.97 (< OR =4)
[2022-03-15] MEDS ORDERED: ISOVUE-370 76% 100ML VIAL As Ordered ONE (15:47)
[2022-03-15 16:53] LABS: CK-MB VALUE MASS 1.7 NG/ML (<3.6); MB/CK RELATIVE INDEX 1.52 (< OR =4)
[2022-03-15 18:00] VITALS: O2SAT 88
[2022-03-15] MEDS ORDERED: IPRATROPIUM 0.5MG/ALBUTEROL 2.5MG INH SOL UD 3ML (DUONEB) NEB ONE (18:00)
[2022-03-15] MEDS ORDERED: methylPREDNISolone 125MG 2ML VIAL IV ONE (18:00)
[2022-03-15 19:02] LABS: CK-MB VALUE MASS 1.7 NG/ML (<3.6); MB/CK RELATIVE INDEX 0.71 (< OR =4)
[2022-03-15] MEDS ORDERED: INSULIN LISPRO (NovoLOG) PER UNIT SC SCH (21:00)
[2022-03-15] MEDS ORDERED: DICY20TA3 PO (21:35)
[2022-03-15] MEDS ORDERED: CARA1TAB6 PO (21:35)
[2022-03-15] MEDS ORDERED: HYDR-4514 PO (21:35)
[2022-03-15] MEDS ORDERED: SYMB80INH INH (21:35)
[2022-03-15] MEDS ORDERED: HOME MED LIST COMPLETE! XX SCH (21:35)
[2022-03-15] MEDS ORDERED: FLON1SPR (21:35)
[2022-03-15] MEDS ORDERED: ALBU8.5H INH (21:35)
[2022-03-15] MEDS ORDERED: GLUCAGON INJ 1MG VIAL SC PRN (21:40)
[2022-03-15] MEDS ORDERED: ALBUTEROL SULFATE 2.5 MG/0.5 ML INH NEB SOLN NEB PRN (21:40)
[2022-03-15] MEDS ORDERED: DEXTROSE 50% 50 ML SYRINGE IV PRN (21:40)
[2022-03-15] MEDS ORDERED: MOM 30ML SUSPENSION UDC PO PRN (21:40)
[2022-03-15] MEDS ORDERED: GLUCOSE 4GM CHEW TABLET PO PRN (21:40)
[2022-03-15] MEDS ORDERED: ANEXSIA, NORCO 7.5MG/325MG TABLET(HYDROCODONE/APAP) PO PRN (21:40)
[2022-03-15 22:55] VITALS: BP 139/79
[2022-03-15] MEDS: LR 1,000 ML IV SCH (23:04)
[2022-03-15] MEDS: CAPTOpril 12.5 MG TAB PO SCH (23:43)
[2022-03-16] MEDS: IPRATROPIUM 0.5MG/ALBUTEROL 2.5MG INH SOL UD 3ML (DUONEB) NEB SCH ×3 (03:53→13:30)
[2022-03-16 05:49] VITALS: BP 149/86
[2022-03-16 06:59] LABS: HEMATOCRIT 41.5 % (42.0-52.0); HEMOGLOBIN 13.7 g/dl (13.5-17.5); MEAN CORPUSCULAR HEMOGLOBIN 27.5 pg (27.0-33.0); MEAN CORPUSCULAR VOLUME 83.2 fl (80.0-96.0); PLATELET COUNT, AUTOMATED 333 10^3/uL (150-450); RED BLOOD COUNT 4.99 10^6/uL (4.30-6.10); WHITE BLOOD COUNT 13.4 10^3/uL (4.0-10.0)
[2022-03-16 07:18] LABS: BLOOD UREA NITROGEN 23 MG/DL (7-18); CALCIUM LEVEL 9.1 MG/DL (8.8-10.2); CARBON DIOXIDE LEVEL 26 MEQ/L (21-32); CHLORIDE LEVEL 95 MEQ/L (98-107); CREATININE FOR GFR 1.12 MG/DL (0.70-1.30); GLOMERULAR FILTRATION RATE > 60.0 (>42); GLUCOSE, FASTING 102 MG/DL (70-100); MAGNESIUM LEVEL 1.7 MG/DL (1.8-2.4); POTASSIUM SERUM 4.1 MEQ/L (3.5-5.1); SODIUM LEVEL 129 MEQ/L (136-145)
[2022-03-16] MEDS ORDERED: INSULIN LISPRO (NovoLOG) PER UNIT SC SCH (07:30)
[2022-03-16] MEDS ORDERED: SYMBICORT 80/4.5MCG INHALER 6GM INH SCH (08:00)
[2022-03-16] MEDS: SUCRALFATE 1 GM TAB PO SCH ×2 (08:40→11:19)
[2022-03-16] MEDS: CAPTOpril 12.5 MG TAB PO SCH (08:43)
[2022-03-16] MEDS ORDERED: PANTOPRAZOLE 40MG VIAL IV SCH (09:00)
[2022-03-16] MEDS ORDERED: DOCUSATE SODIUM 100MG CAPSULE PO SCH (09:00)
[2022-03-16] MEDS ORDERED: ENOXAPARIN 40MG/0.4ML SYRINGE (J1650 PER 10MG) SC SCH (09:00)
[2022-03-16] MEDS ORDERED: predniSONE 20 MG TAB PO SCH (09:00)
[2022-03-16] MEDS ORDERED: PREVNAR 13 VACCINE SYRINGE IM ONE (09:00)
[2022-03-16] MEDS ORDERED: NS 500 ML IV ONE (10:00)
[2022-03-16] MEDS ORDERED: NS 1,000 ML IV SCH (10:00)
[2022-03-16] MEDS ORDERED: AZITHROMYCIN INJ 500 MG, VIAL MATE ADAPTER 1 EACH in NS 250 ML IV SCH (10:00)
[2022-03-16] MEDS: LR 1,000 ML IV SCH (10:10)
[2022-03-16 14:00] VITALS: BP 153/85
[2022-03-16 14:57] LABS: BLOOD UREA NITROGEN 25 MG/DL (7-18); CALCIUM LEVEL 9.1 MG/DL (8.8-10.2); CARBON DIOXIDE LEVEL 26 MEQ/L (21-32); CHLORIDE LEVEL 99 MEQ/L (98-107); CREATININE FOR GFR 0.91 MG/DL (0.70-1.30); GLOMERULAR FILTRATION RATE > 60.0 (>42); GLUCOSE, FASTING 95 MG/DL (70-100); POTASSIUM SERUM 4.2 MEQ/L (3.5-5.1); SODIUM LEVEL 132 MEQ/L (136-145)
[2022-03-16] MEDS ORDERED: AZIT500T5 PO (15:05)
[2022-03-16] MEDS ORDERED: PRED10TA2 PO (15:05)
[2022-03-16] MEDS ORDERED: AMLO1TAB24 PO (15:06)
[2022-03-16] MEDS ORDERED: amLODIPine 5 MG TAB PO ONE (15:10)
[2022-03-16 15:36] VITALS: BP 153/85
== END 2022-03-16 17:35 | disposition home or self-care (01) | DRG 191 ==
LOC: M ED 13:42 → M MS5PR 20:45 → UNDOADMIN 20:45 → ENRESERV 21:53 → M MS5PR 22:45
PROVIDERS: ADMIT Family Medicine; ATTEND Internal Medicine
DX: J44.1 Chronic obstructive pulmonary disease with (acute) exacerbation (principal); E87.1 Hypo-osmolality and hyponatremia; R64 Cachexia; Z68.1 Body mass index [BMI] 19.9 or less, adult; R42 Dizziness and giddiness; E11.9 Type 2 diabetes mellitus without complications; I10 Essential (primary) hypertension; K21.9 Gastro-esophageal reflux disease without esophagitis; E78.5 Hyperlipidemia, unspecified; F17.200 Nicotine dependence, unspecified, uncomplicated; R63.6 Underweight; E86.0 Dehydration; Z79.899 Other long term (current) drug therapy

== ENCOUNTER 2022-03-24 01:37 | Emergency (ER) | payer MEDICARE ==
[~2022-03-24] VITALS: Ht 177.8 cm; Wt 48.3 kg
[~2022-03-24 01:37] MED LIST changes: +ALBU8.5H INH; +AMLO1TAB24 PO; +AZIT500T5 PO; +CARA1TAB6 PO; +CEFT1INJ65 IM; +DICY20TA20; +DICY20TA3 PO; +FLON1SPR; +HYDR-4514 PO; +METH125I3 IM; +SUCR1TAB56; +SYMB80INH INH
[2022-03-24] MEDS ORDERED: MORPHINE 4 MG/ML 1ML VIAL/SYRINGE IV ONE (02:35)
[2022-03-24] MEDS ORDERED: ONDANSETRON 4MG/2ML VIAL As Ordered ONE (02:47)
[2022-03-24] MEDS ORDERED: ONDANSETRON 4MG/2ML VIAL IV ONE (02:50)
[2022-03-24 03:20] LABS: BASO % 0.1 % (0.0-1.0); EOS % 0.2 % (0.0-3.0); HEMATOCRIT 41.5 % (42.0-52.0); HEMOGLOBIN 13.9 g/dl (13.5-17.5); LYMPH # 2.1 10^3/uL (1.5-5.0); LYMPH % 10.5 % (24.0-44.0); MEAN CORPUSCULAR HEMOGLOBIN 27.9 pg (27.0-33.0); MEAN CORPUSCULAR HGB CONC 33.5 g/dl (32.0-36.5); MEAN CORPUSCULAR VOLUME 83.3 fl (80.0-96.0); MONO # 1.3 10^3/uL (0.0-0.8); MONO % 6.5 % (2.0-8.0); NEUTROPHILS # 16.6 10^3/uL (1.5-8.5); NEUTROPHILS % 82.1 % (36.0-66.0); PLATELET COUNT, AUTOMATED 393 10^3/uL (150-450); RED BLOOD COUNT 4.98 10^6/uL (4.30-6.10); WHITE BLOOD COUNT 20.2 10^3/uL (4.0-10.0)
[2022-03-24] MEDS ORDERED: HYDROMORPHONE HCL 0.5 MG/ 0.5 ML SYRINGE (J1170 PER 1) IV ONE (03:20)
[2022-03-24 03:29] LABS: ALBUMIN 3.3 GM/DL (3.2-5.2); ALT/SGPT 60 U/L (12-78); BILIRUBIN,TOTAL 1.2 MG/DL (0.2-1.0); BLOOD UREA NITROGEN 35 MG/DL (7-18); CALCIUM LEVEL 10.6 MG/DL (8.8-10.2); CARBON DIOXIDE LEVEL 26 MEQ/L (21-32); CHLORIDE LEVEL 92 MEQ/L (98-107); CREATININE FOR GFR 1.13 MG/DL (0.70-1.30); GLOMERULAR FILTRATION RATE > 60.0 (>42); GLUCOSE, FASTING 94 MG/DL (70-100); LIPASE 79 U/L (73-393); POTASSIUM SERUM 5.1 MEQ/L (3.5-5.1); SODIUM LEVEL 132 MEQ/L (136-145); TOTAL PROTEIN 6.8 GM/DL (6.4-8.2)
[2022-03-24] MEDS ORDERED: NS 1,000 ML IV ONE ×2 (04:30→06:15)
[2022-03-24] MEDS ORDERED: ISOVUE-370 76% 100ML VIAL As Ordered ONE (04:58)
[2022-03-24] MEDS ORDERED: CEFEPIME HCL 1 GM in D5W MINI-BAG PLUS 50 ML IV ONE (06:15)
[2022-03-24 08:07] VITALS: BP 159/69
== END 2022-03-24 08:13 | disposition short-term general hospital (02) ==
LOC: EDBD 01:37 → M ED 01:37
DX: K55.059 Acute (reversible) ischemia of intestine, part and extent unspecified (principal); R91.8 Other nonspecific abnormal finding of lung field; I10 Essential (primary) hypertension; K21.9 Gastro-esophageal reflux disease without esophagitis; K80.20 Calculus of gallbladder without cholecystitis without obstruction; Z79.899 Other long term (current) drug therapy
CPT/HCPCS: 74174; 74176; 80053; 83605; 83690; 85025; 87040; 87486; 87581; 87633; 87798; 96361; 96365; 96366; 96375; 99285; J0692; J1170; J2270; J2405; Q9967